=== PATIENT | male | born 1970 | race Caucasian/White ===

== ENCOUNTER 2017-07-19 19:33 | Inpatient (IN) | payer BC, OTHER ==
[~2017-07-19] VITALS: Ht 170.2 cm; Wt 101.0 kg
[~2017-07-19 19:33] MED LIST: BENZ10TG MC; Bupropion Xl150 MG PO; CEPH500 PO; CLIN300 PO; GABA300 PO; Glucophage1000 MG PO; HYDACE5 PO; INSLI100I SC; INSUASPI SC; INSULANPEN; Lantus100 UNIT/1 SC; Lovastatin20 MG PO; METF500C PO; METO25ER PO; Prinivil10 MG PO; RXCLIN PO; SULTRIDS PO
[2017-07-19 20:11] LABS: BASOPHILS ABSOLUTE AUTO 0.09 K/mm3 (0.00-0.23); BASOPHILS PERCENT AUTO 1 % (0-2); EOSINOPHILS PERCENT AUTO 0 % (0-6); Hematocrit 43.7 % (37.0-53.0); Hemoglobin 14.5 g/dL (13.5-17.5); IMMATURE GRAN ABSOLUTE AUTO 0.31 K/mm3 (0.00-0.10); IMMATURE GRAN PERCENT AUTO 2 % (0-1); LYMPHOCYTES ABSOLUTE AUTO 0.33 K/mm3 (0.84-5.20); LYMPHOCYTES PERCENT AUTO 2 % (21-46); MONOCYTES ABSOLUTE AUTO 2.08 K/mm3 (0.16-1.47); MONOCYTES PERCENT AUTO 11 % (4-13); Mean Corpuscular HGB 33.1 pg (26.0-34.0); Mean Corpuscular HGB Conc 33.2 g/dL (31.5-36.5); Mean Corpuscular Volume 100 fL (80-100); Mean Platelet Volume 10.1 fL (9.1-12.4); NEUTROPHILS ABSOLUTE AUTO 15.74 K/mm3 (1.96-9.15); NEUTROPHILS PERCENT AUTO 85 % (41-73); Platelet Count 259 K/mm3 (150-400); RDW Coefficient Variation 11.8 % (11.7-14.2); RDW Standard Deviation 43.1 fL (35.1-46.3); Red Blood Cell Count 4.38 M/mm3 (4.30-5.90); White Blood Cell Count 18.55 K/mm3 (4.00-11.30)
[2017-07-19 20:30] LABS: Calcium, Ionized (POC) 1.08 mmol/L (1.10-1.46); Chloride (POC) 104 mmol/L (98-108); Creatinine (POC) 0.8 mg/dL (0.8-1.3); Glucose (ISTAT POC) 453 mg/dL (70-99); Hemoglobin (POC) 14.6 g/dL (13.5-17.5); Potassium (POC) 4.7 mmol/L (3.5-5.5); Sodium (POC) 130 mmol/L (135-148); Total CO2 (POC) 8 mmol/L (21-32)
[2017-07-19 20:32] LABS: Source, Urine Clean Catch
[2017-07-19 20:35] LABS: PCO2 Arterial 11.5 mmHg (35-45); PO2 Arterial 125 mmHg (80-100); pH Blood Arterial 7.05 (7.35-7.45)
[2017-07-19 20:41] LABS: Ethanol (Alcohol), Blood, Med <3 mg/dL; Magnesium, Blood 2.3 mg/dL (1.6-2.4)
[2017-07-19 20:46] LABS: Appearance, Urine Clear (Clear); Bilirubin, Urine Neg (Neg); Blood, Urine 5+ (Neg); Color, Urine Yellow (P-Yellow); Glucose Qualitative, Urine 4+ (Neg); Ketones, Urine 4+ (Neg); Leukocyte Esterase, Urine Neg (Neg); Nitrite, Urine Neg (Neg); Protein, Urine 2+ (Neg); Urobilinogen, Urine NORM (Normal)
[2017-07-19] MEDS ORDERED: DOXY100 PO ×2 (20:51)
[2017-07-19 20:55] LABS: Bacteria Rare /hpf; Squamous Epithelial Cells Not Seen /hpf (Few); White Blood Cells, Urine 0-2 /hpf (0-5)
[2017-07-19 21:07] LABS: Troponin I <0.015 ng/mL (0.000-0.040)
[2017-07-19 21:32] LABS: Alanine Aminotransfer (ALT/SGP 25 U/L (12-78); Albumin, Blood 3.2 g/dL (3.4-5.0); Albumin/Globulin Ratio 0.6 (0.8-1.8); Alk Phos 139 U/L (50-136); Anion Gap 28 mmol/L (6-16); Aspartate Aminotrans (AST/SGOT 17 U/L (12-37); Bilirubin, Total 0.5 mg/dL (0.1-1.0); Blood Urea Nitrogen 33 mg/dL (8-24); CO2, Blood 7 mmol/L (21-32); Calcium, Blood 8.9 mg/dL (8.5-10.1); Chloride, Blood 94 mmol/L (98-108); Creatinine, Blood 0.85 mg/dL (0.60-1.20); Globulin, Blood 5.3 g/dL (2.2-4.0); Glomerular Filtration Rate >60 (60-); Glucose, Blood 447 mg/dL (70-99); Phosphorus, Blood 3.5 mg/dL (2.5-4.9); Potassium, Blood 4.6 mmol/L (3.5-5.5); Sodium, Blood 129 mmol/L (136-145); Total Protein, Blood 8.5 g/dL (6.4-8.2)
[2017-07-20 00:51] LABS: Albumin, Blood 2.7 g/dL (3.4-5.0); Anion Gap 23 mmol/L (6-16); Blood Urea Nitrogen 30 mg/dL (8-24); Bun/Creatinine Ratio 37.3 (12.0-20.0); CO2, Blood 8 mmol/L (21-32); Calcium, Blood 7.9 mg/dL (8.5-10.1); Chloride, Blood 105 mmol/L (98-108); Creatinine, Blood 0.81 mg/dL (0.60-1.20); Glomerular Filtration Rate >60 (60-); Glucose, Blood 290 mg/dL (70-99); Phosphorus, Blood 2.2 mg/dL (2.5-4.9); Potassium, Blood 4.5 mmol/L (3.5-5.5); Sodium, Blood 136 mmol/L (136-145)
[2017-07-20 04:34] LABS: BASOPHILS ABSOLUTE AUTO 0.03 K/mm3 (0.00-0.23); BASOPHILS PERCENT AUTO 0 % (0-2); EOSINOPHILS PERCENT AUTO 0 % (0-6); Hematocrit 35.6 % (37.0-53.0); Hemoglobin 12.2 g/dL (13.5-17.5); IMMATURE GRAN ABSOLUTE AUTO 0.27 K/mm3 (0.00-0.10); IMMATURE GRAN PERCENT AUTO 2 % (0-1); LYMPHOCYTES PERCENT AUTO 5 % (21-46); MONOCYTES ABSOLUTE AUTO 2.05 K/mm3 (0.16-1.47); MONOCYTES PERCENT AUTO 14 % (4-13); Mean Corpuscular HGB 32.7 pg (26.0-34.0); Mean Corpuscular HGB Conc 34.3 g/dL (31.5-36.5); Mean Platelet Volume 9.7 fL (9.1-12.4); NEUTROPHILS ABSOLUTE AUTO 11.66 K/mm3 (1.96-9.15); NEUTROPHILS PERCENT AUTO 79 % (41-73); Platelet Count 243 K/mm3 (150-400); RDW Coefficient Variation 11.8 % (11.7-14.2); RDW Standard Deviation 41.1 fL (35.1-46.3); Red Blood Cell Count 3.73 M/mm3 (4.30-5.90); White Blood Cell Count 14.71 K/mm3 (4.00-11.30)
[2017-07-20 04:52] LABS: Mean Corpuscular Volume 95 fL (80-100)
[2017-07-20 05:04] LABS: Albumin, Blood 2.4 g/dL (3.4-5.0); Anion Gap 19 mmol/L (6-16); Blood Urea Nitrogen 28 mg/dL (8-24); Bun/Creatinine Ratio 38.6 (12.0-20.0); CO2, Blood 11 mmol/L (21-32); Calcium, Blood 7.8 mg/dL (8.5-10.1); Chloride, Blood 107 mmol/L (98-108); Creatinine, Blood 0.73 mg/dL (0.60-1.20); Glomerular Filtration Rate >60 (60-); Glucose, Blood 239 mg/dL (70-99); Phosphorus, Blood 1.1 mg/dL (2.5-4.9); Potassium, Blood 4.2 mmol/L (3.5-5.5); Sodium, Blood 137 mmol/L (136-145)
[2017-07-20 08:26] LABS: Albumin, Blood 2.3 g/dL (3.4-5.0); Anion Gap 15 mmol/L (6-16); Blood Urea Nitrogen 23 mg/dL (8-24); Bun/Creatinine Ratio 37.6 (12.0-20.0); CO2, Blood 15 mmol/L (21-32); Calcium, Blood 7.7 mg/dL (8.5-10.1); Chloride, Blood 108 mmol/L (98-108); Creatinine, Blood 0.61 mg/dL (0.60-1.20); Glomerular Filtration Rate >60 (60-); Glucose, Blood 214 mg/dL (70-99); Phosphorus, Blood 1.3 mg/dL (2.5-4.9); Potassium, Blood 3.6 mmol/L (3.5-5.5); Sodium, Blood 138 mmol/L (136-145)
[2017-07-20 12:42] LABS: Albumin, Blood 2.2 g/dL (3.4-5.0); Anion Gap 11 mmol/L (6-16); Blood Urea Nitrogen 20 mg/dL (8-24); Bun/Creatinine Ratio 37.3 (12.0-20.0); CO2, Blood 20 mmol/L (21-32); Calcium, Blood 7.7 mg/dL (8.5-10.1); Chloride, Blood 106 mmol/L (98-108); Creatinine, Blood 0.54 mg/dL (0.60-1.20); Glomerular Filtration Rate >60 (60-); Glucose, Blood 222 mg/dL (70-99); Phosphorus, Blood 1.8 mg/dL (2.5-4.9); Potassium, Blood 3.4 mmol/L (3.5-5.5); Sodium, Blood 137 mmol/L (136-145)
[2017-07-20 16:20] LABS: Albumin, Blood 2.2 g/dL (3.4-5.0); Anion Gap 14 mmol/L (6-16); Blood Urea Nitrogen 19 mg/dL (8-24); Bun/Creatinine Ratio 34.2 (12.0-20.0); CO2, Blood 18 mmol/L (21-32); Chloride, Blood 107 mmol/L (98-108); Creatinine, Blood 0.56 mg/dL (0.60-1.20); Glomerular Filtration Rate >60 (60-); Glucose, Blood 279 mg/dL (70-99); Phosphorus, Blood 1.9 mg/dL (2.5-4.9); Potassium, Blood 3.4 mmol/L (3.5-5.5); Sodium, Blood 139 mmol/L (136-145)
[2017-07-21 05:01] LABS: BASOPHILS ABSOLUTE AUTO 0.04 K/mm3 (0.00-0.23); BASOPHILS PERCENT AUTO 0 % (0-2); EOSINOPHILS ABSOLUTE AUTO 0.08 K/mm3 (0.00-0.68); EOSINOPHILS PERCENT AUTO 1 % (0-6); Hemoglobin 11.8 g/dL (13.5-17.5); IMMATURE GRAN ABSOLUTE AUTO 0.11 K/mm3 (0.00-0.10); IMMATURE GRAN PERCENT AUTO 1 % (0-1); LYMPHOCYTES ABSOLUTE AUTO 1.21 K/mm3 (0.84-5.20); LYMPHOCYTES PERCENT AUTO 13 % (21-46); MONOCYTES ABSOLUTE AUTO 1.45 K/mm3 (0.16-1.47); MONOCYTES PERCENT AUTO 16 % (4-13); Mean Corpuscular HGB 32.7 pg (26.0-34.0); Mean Corpuscular HGB Conc 34.7 g/dL (31.5-36.5); Mean Corpuscular Volume 94 fL (80-100); Mean Platelet Volume 9.5 fL (9.1-12.4); NEUTROPHILS ABSOLUTE AUTO 6.14 K/mm3 (1.96-9.15); NEUTROPHILS PERCENT AUTO 68 % (41-73); Platelet Count 227 K/mm3 (150-400); RDW Coefficient Variation 11.9 % (11.7-14.2); RDW Standard Deviation 41.2 fL (35.1-46.3); Red Blood Cell Count 3.61 M/mm3 (4.30-5.90); White Blood Cell Count 9.03 K/mm3 (4.00-11.30)
[2017-07-21 05:29] LABS: Alanine Aminotransfer (ALT/SGP 14 U/L (12-78); Albumin, Blood 2.1 g/dL (3.4-5.0); Alk Phos 83 U/L (50-136); Anion Gap 10 mmol/L (6-16); Aspartate Aminotrans (AST/SGOT 11 U/L (12-37); Bilirubin, Total 0.3 mg/dL (0.1-1.0); Blood Urea Nitrogen 15 mg/dL (8-24); Bun/Creatinine Ratio 28.2 (12.0-20.0); CO2, Blood 24 mmol/L (21-32); Calcium, Blood 7.8 mg/dL (8.5-10.1); Chloride, Blood 106 mmol/L (98-108); Creatinine, Blood 0.53 mg/dL (0.60-1.20); Glomerular Filtration Rate >60 (60-); Glucose, Blood 214 mg/dL (70-99); Potassium, Blood 3.3 mmol/L (3.5-5.5); Sodium, Blood 140 mmol/L (136-145)
[2017-07-21 05:30] LABS: Albumin/Globulin Ratio 0.6 (0.8-1.8); Globulin, Blood 3.7 g/dL (2.2-4.0); Total Protein, Blood 5.8 g/dL (6.4-8.2)
[2017-07-21 11:09] LABS: Vancomycin, Trough 10.7 ug/mL (5.0-10.0)
[2017-07-22 05:44] LABS: Anion Gap 7 mmol/L (6-16); Blood Urea Nitrogen 13 mg/dL (8-24); Bun/Creatinine Ratio 23.9 (12.0-20.0); CO2, Blood 31 mmol/L (21-32); Calcium, Blood 8.3 mg/dL (8.5-10.1); Chloride, Blood 104 mmol/L (98-108); Creatinine, Blood 0.54 mg/dL (0.60-1.20); Glomerular Filtration Rate >60 (60-); Glucose, Blood 236 mg/dL (70-99); Potassium, Blood 3.1 mmol/L (3.5-5.5); Sodium, Blood 142 mmol/L (136-145)
[2017-07-22] MEDS ORDERED: Augmentin 875-1 EACH PO ×2 (11:56)
[2017-07-22] MEDS ORDERED: Acetaminophen325 M1 PO ×2 (11:56)
[2017-07-22] MEDS ORDERED: Novolog Fl100 UNIT/1 SC ×2 (11:57)
[2017-07-22] MEDS ORDERED: Oxycodone-Apap1 EAC3 PO ×2 (11:57)
[2017-07-22] MEDS ORDERED: INSULANPEN SC ×2 (11:58)
[2017-07-22] MEDS ORDERED: PROBIOTIC1 EACH PO ×2 (12:00)
== END 2017-07-22 14:34 | disposition home or self-care (01) | DRG 638 ==
LOC: ER 19:33 → MEDS 21:08 → ICUW 21:08 → ICUE 21:29 → MEDS 07-20 18:19 → ENPENDDIS 07-22 10:21 → MEDS 07-22 14:34
PROVIDERS: Emergency Medicine; Family Medicine; Internal Medicine
PROC: 0Y903ZZ Drainage of Right Buttock, Percutaneous Approach (ICD-10-PCS; principal; 2017-07-20)
DX: E11.10 Type 2 diabetes mellitus with ketoacidosis without coma (principal); L02.31 Cutaneous abscess of buttock; E87.1 Hypo-osmolality and hyponatremia; B95.4 Other streptococcus as the cause of diseases classified elsewhere; B95.1 Streptococcus, group B, as the cause of diseases classified elsewhere; E78.5 Hyperlipidemia, unspecified; I10 Essential (primary) hypertension; F10.10 Alcohol abuse, uncomplicated; Z87.891 Personal history of nicotine dependence; Z88.6 Allergy status to analgesic agent; Z89.429 Acquired absence of other toe(s), unspecified side
CPT/HCPCS: 10140; 36415; 36600; 71045; 80047; 80048; 80053; 80069; 80202; 81001; 82010; 82803; 82947; 83036; 83605; 83735; 84100; 84484; 85014; 85025; 87040; 87070; 87075; 87076; 87147; 87185; 87205; 87493; 93005; 93010; 96361; 96374; 99285; G0480; J0360; J0696; J1815; J2270; J2405; J2543; J3370; J7030; J7042; J7050; J7060

== ENCOUNTER 2017-07-29 16:32 | Emergency (ER) | payer BC, OTHER ==
[~2017-07-29] VITALS: Ht 170.2 cm; Wt 95.2 kg
[~2017-07-29 16:32] MED LIST changes: +Acetaminophen325 M1 PO; +Augmentin 875-1 EACH PO; +DOXY100 PO; +INSULANPEN SC; +Novolog Fl100 UNIT/1 SC; +Oxycodone-Apap1 EAC3 PO; +PROBIOTIC1 EACH PO
[2017-07-29 17:44] LABS: BASOPHILS ABSOLUTE AUTO 0.07 K/mm3 (0.00-0.23); BASOPHILS PERCENT AUTO 1 % (0-2); EOSINOPHILS ABSOLUTE AUTO 0.11 K/mm3 (0.00-0.68); EOSINOPHILS PERCENT AUTO 1 % (0-6); Hematocrit 44.7 % (37.0-53.0); Hemoglobin 14.9 g/dL (13.5-17.5); IMMATURE GRAN ABSOLUTE AUTO 0.07 K/mm3 (0.00-0.10); IMMATURE GRAN PERCENT AUTO 1 % (0-1); LYMPHOCYTES ABSOLUTE AUTO 1.71 K/mm3 (0.84-5.20); LYMPHOCYTES PERCENT AUTO 18 % (21-46); MONOCYTES ABSOLUTE AUTO 1.15 K/mm3 (0.16-1.47); MONOCYTES PERCENT AUTO 12 % (4-13); Mean Corpuscular HGB 32.1 pg (26.0-34.0); Mean Corpuscular HGB Conc 33.3 g/dL (31.5-36.5); Mean Corpuscular Volume 96 fL (80-100); NEUTROPHILS ABSOLUTE AUTO 6.22 K/mm3 (1.96-9.15); NEUTROPHILS PERCENT AUTO 67 % (41-73); Platelet Count 378 K/mm3 (150-400); RDW Coefficient Variation 11.6 % (11.7-14.2); Red Blood Cell Count 4.64 M/mm3 (4.30-5.90); White Blood Cell Count 9.33 K/mm3 (4.00-11.30)
[2017-07-29] MEDS ORDERED: BUPR150ER PO (17:45)
[2017-07-29] MEDS ORDERED: Lantus100 UNIT/1 SQ (17:45)
[2017-07-29] MEDS ORDERED: Metformin HCl1000 MG PO (17:45)
[2017-07-29] MEDS ORDERED: GABA100 PO (17:45)
[2017-07-29 18:01] LABS: Alanine Aminotransfer (ALT/SGP 36 U/L (12-78); Albumin/Globulin Ratio 0.6 (0.8-1.8); Alk Phos 99 U/L (50-136); Anion Gap 7 mmol/L (6-16); Aspartate Aminotrans (AST/SGOT 32 U/L (12-37); Bilirubin, Total 0.2 mg/dL (0.1-1.0); Blood Urea Nitrogen 13 mg/dL (8-24); Bun/Creatinine Ratio 18.7 (12.0-20.0); CO2, Blood 29 mmol/L (21-32); Calcium, Blood 9.1 mg/dL (8.5-10.1); Chloride, Blood 103 mmol/L (98-108); Creatinine, Blood 0.69 mg/dL (0.60-1.20); Glomerular Filtration Rate >60 (60-); Glucose, Blood 181 mg/dL (70-99); Potassium, Blood 4.2 mmol/L (3.5-5.5); Sodium, Blood 139 mmol/L (136-145)
[2017-07-29] MEDS ORDERED: Augmentin 875-1 EACH PO (18:38)
== END 2017-07-29 19:09 | disposition home or self-care (01) ==
LOC: ER 16:32
PROVIDERS: Physician Assistant
DX: Z48.817 Encounter for surgical aftercare following surgery on the skin and subcutaneous tissue (principal); L02.31 Cutaneous abscess of buttock; Z91.040 Latex allergy status; Z88.8 Allergy status to other drugs, medicaments and biological substances; Z79.899 Other long term (current) drug therapy; Z79.84 Long term (current) use of oral hypoglycemic drugs; Z79.4 Long term (current) use of insulin; E11.9 Type 2 diabetes mellitus without complications
CPT/HCPCS: 36415; 80053; 82947; 83605; 85025; 87040; 87070; 87075; 87077; 87147; 87186; 87205; 99283

== ENCOUNTER 2017-08-08 00:22 | Day surgery (SDC) | payer BC, OTHER ==
[~2017-08-08 00:22] MED LIST changes: +BUPR150ER PO; +GABA100 PO; +Lantus100 UNIT/1 SQ; +Metformin HCl1000 MG PO
== END 2017-08-08 23:18 | disposition home or self-care (01) ==
LOC: WOUND 00:22
PROC: 0JB90ZZ Excision of Buttock Subcutaneous Tissue and Fascia, Open Approach (ICD-10-PCS; principal; 2017-08-08)
DX: Z48.00 Encounter for change or removal of nonsurgical wound dressing (principal); K61.2 Anorectal abscess; E11.8 Type 2 diabetes mellitus with unspecified complications; E66.9 Obesity, unspecified; Z68.33 Body mass index [BMI] 33.0-33.9, adult; Z79.4 Long term (current) use of insulin; Z87.891 Personal history of nicotine dependence; Z91.040 Latex allergy status
CPT/HCPCS: G0463

== ENCOUNTER 2017-08-16 00:12 | Day surgery (SDC) | payer BC, OTHER | END 2017-08-16 23:09 | disposition home or self-care (01) | LOC: WOUND 00:12 | DX: Z48.00 Encounter for change or removal of nonsurgical wound dressing (principal); K61.2 Anorectal abscess; E11.8 Type 2 diabetes mellitus with unspecified complications; E11.10 Type 2 diabetes mellitus with ketoacidosis without coma; Z87.891 Personal history of nicotine dependence; Z79.4 Long term (current) use of insulin | CPT/HCPCS: G0463 ==

== ENCOUNTER 2017-08-21 00:13 | Day surgery (SDC) | payer BC, OTHER | END 2017-08-21 22:57 | disposition home or self-care (01) | LOC: WOUND 00:13 | DX: Z48.00 Encounter for change or removal of nonsurgical wound dressing (principal); K61.1 Rectal abscess; L02.31 Cutaneous abscess of buttock; E11.9 Type 2 diabetes mellitus without complications; Z87.891 Personal history of nicotine dependence; Z79.4 Long term (current) use of insulin | CPT/HCPCS: G0463 ==

== ENCOUNTER 2020-11-28 16:16 | Emergency (ER) | payer OTHER ==
[~2020-11-28] VITALS: Ht 170.2 cm; Wt 96.2 kg
[2020-11-28] MEDS ORDERED: Metformin HCl750 MG PO (16:29)
[2020-11-28] MEDS ORDERED: ATORVASTATIN CA20 MG PO (16:30)
[2020-11-28] MEDS ORDERED: CEPH500 PO (16:33)
== END 2020-11-28 16:33 | disposition home or self-care (01) ==
LOC: ER 16:16
DX: L03.116 Cellulitis of left lower limb (principal); L03.115 Cellulitis of right lower limb; E11.9 Type 2 diabetes mellitus without complications; E78.5 Hyperlipidemia, unspecified; Z88.6 Allergy status to analgesic agent; Z91.040 Latex allergy status; Z79.4 Long term (current) use of insulin; Z79.899 Other long term (current) drug therapy
CPT/HCPCS: 99282

== ENCOUNTER 2020-12-16 13:12 | Emergency (ER) | payer OTHER ==
[~2020-12-16] VITALS: Ht 170.2 cm; Wt 94.8 kg
[~2020-12-16 13:12] MED LIST changes: +ATORVASTATIN CA20 MG PO; +Metformin HCl750 MG PO
[2020-12-16 13:43] LABS: BASOPHILS ABSOLUTE AUTO 0.08 K/mm3 (0.00-0.23); BASOPHILS PERCENT AUTO 1 % (0-2); EOSINOPHILS ABSOLUTE AUTO 0.18 K/mm3 (0.00-0.68); EOSINOPHILS PERCENT AUTO 2 % (0-6); Hematocrit 43.5 % (37.0-53.0); IMMATURE GRAN ABSOLUTE AUTO 0.04 K/mm3 (0.00-0.10); IMMATURE GRAN PERCENT AUTO 0 % (0-1); LYMPHOCYTES ABSOLUTE AUTO 1.05 K/mm3 (0.84-5.20); LYMPHOCYTES PERCENT AUTO 9 % (21-46); MONOCYTES ABSOLUTE AUTO 1.42 K/mm3 (0.16-1.47); MONOCYTES PERCENT AUTO 12 % (4-13); Mean Corpuscular HGB 32.6 pg (26.0-34.0); Mean Corpuscular HGB Conc 34.5 g/dL (31.5-36.5); Mean Corpuscular Volume 95 fL (80-100); Mean Platelet Volume 10.5 fL (9.1-12.4); NEUTROPHILS ABSOLUTE AUTO 9.43 K/mm3 (1.96-9.15); NEUTROPHILS PERCENT AUTO 77 % (41-73); Platelet Count 236 K/mm3 (150-400); RDW Standard Deviation 41.8 fL (35.1-46.3)
[2020-12-16 14:18] LABS: Alanine Aminotransfer (ALT/SGP 23 U/L (12-78); Albumin, Blood 3.4 g/dL (3.4-5.0); Albumin/Globulin Ratio 0.9 (0.8-1.8); Alk Phos 158 U/L (50-136); Anion Gap 7 mmol/L (6-16); Aspartate Aminotrans (AST/SGOT 13 U/L (12-37); Bilirubin, Total 0.8 mg/dL (0.1-1.0); Blood Urea Nitrogen 13 mg/dL (8-24); Bun/Creatinine Ratio 21.3 (12.0-20.0); CO2, Blood 27 mmol/L (21-32); Calcium, Blood 9.1 mg/dL (8.5-10.1); Chloride, Blood 99 mmol/L (98-108); Creatinine, Blood 0.61 mg/dL (0.60-1.20); Globulin, Blood 3.6 g/dL (2.2-4.0); Glomerular Filtration Rate >60 (60-); Glucose, Blood 537 mg/dL (70-99); Potassium, Blood 4.7 mmol/L (3.5-5.5); Sodium, Blood 133 mmol/L (136-145)
[2020-12-16] MEDS ORDERED: Cleocin HCl300 MG PO (15:14)
== END 2020-12-16 15:25 | disposition home or self-care (01) ==
LOC: ER 13:12
PROVIDERS: Physician Assistant
DX: L03.116 Cellulitis of left lower limb (principal); L03.115 Cellulitis of right lower limb; E11.9 Type 2 diabetes mellitus without complications; Z88.6 Allergy status to analgesic agent; Z91.040 Latex allergy status; Z87.891 Personal history of nicotine dependence
CPT/HCPCS: 36415; 80053; 83690; 85025; 96365; 99283-25

== ENCOUNTER 2020-12-23 10:32 | Day surgery (SDC) | payer OTHER ==
[~2020-12-23 10:32] MED LIST changes: +Cleocin HCl300 MG PO
== END 2020-12-23 23:00 | disposition home or self-care (01) ==
LOC: WOUND 10:32
DX: E11.622 Type 2 diabetes mellitus with other skin ulcer (principal); L97.829 Non-pressure chronic ulcer of other part of left lower leg with unspecified severity; L97.819 Non-pressure chronic ulcer of other part of right lower leg with unspecified severity; E11.59 Type 2 diabetes mellitus with other circulatory complications; Z91.040 Latex allergy status
CPT/HCPCS: G0463

== ENCOUNTER 2020-12-30 01:28 | Day surgery (SDC) | payer OTHER | END 2020-12-30 22:49 | disposition home or self-care (01) | LOC: WOUND 01:28 | DX: E11.622 Type 2 diabetes mellitus with other skin ulcer (principal); L97.829 Non-pressure chronic ulcer of other part of left lower leg with unspecified severity; L97.819 Non-pressure chronic ulcer of other part of right lower leg with unspecified severity; E11.59 Type 2 diabetes mellitus with other circulatory complications; E11.10 Type 2 diabetes mellitus with ketoacidosis without coma; E11.65 Type 2 diabetes mellitus with hyperglycemia; Z79.4 Long term (current) use of insulin; Z87.891 Personal history of nicotine dependence | CPT/HCPCS: A9270; G0463 ==

== ENCOUNTER 2021-04-13 06:13 | Day surgery (SDC) | payer OTHER ==
[~2021-04-13] VITALS: Ht 170.2 cm; Wt 89.2 kg
[2021-04-13] MEDS ORDERED: GLIP5ER PO (06:46)
--- NOTE | 2021-04-13 07:32 | NUR ---
04/13/21 0732 Sarah Mccray TETRATIMOTEOINE DROP TO RIGHT EYE AT 0636. PLEDGET TO RIGHT EYE AT 0637.
[2021-04-19] MEDS ORDERED: SILVADENE20 G1 TOP (09:48)
== END 2021-04-13 08:26 | disposition home or self-care (01) ==
LOC: ORSCSDS 06:13
PROVIDERS: Ophthalmology
PROC: 08RJ3JZ Replacement of Right Lens with Synthetic Substitute, Percutaneous Approach (ICD-10-PCS; principal; 2021-04-13 07:30)
DX: H25.11 Age-related nuclear cataract, right eye (principal); I10 Essential (primary) hypertension; E11.9 Type 2 diabetes mellitus without complications; Z79.4 Long term (current) use of insulin; Z79.899 Other long term (current) drug therapy
CPT/HCPCS: 82947; J2001; J2250; J3010; J3301; J7040; V2632

== ENCOUNTER 2021-04-27 06:09 | Day surgery (SDC) | payer OTHER ==
[~2021-04-27] VITALS: Ht 170.2 cm; Wt 89.7 kg
[~2021-04-27 06:09] MED LIST changes: +GLIP5ER PO; +SILVADENE20 G1 TOP
--- NOTE | 2021-04-27 06:24 | NUR ---
04/27/21 0624 Radha Nava EYE DROPS AND PLEDGETT IN AT 0619. CALL LIGHT WITHIN REACH.
== END 2021-04-27 08:24 | disposition home or self-care (01) ==
LOC: ORSCSDS 06:09
PROVIDERS: Ophthalmology
PROC: 08RK3JZ Replacement of Left Lens with Synthetic Substitute, Percutaneous Approach (ICD-10-PCS; principal; 2021-04-27 07:30)
DX: H25.12 Age-related nuclear cataract, left eye (principal); I10 Essential (primary) hypertension; E11.9 Type 2 diabetes mellitus without complications; Z87.891 Personal history of nicotine dependence; Z79.899 Other long term (current) drug therapy
CPT/HCPCS: 82947; J2001; J2250; J3010; J3301; J7040; V2632

== ENCOUNTER 2022-01-22 09:39 | Day surgery (SDC) | payer OTHER ==
[~2022-01-22] VITALS: Ht 172.7 cm; Wt 96.5 kg
--- NOTE | 2022-01-22 10:28 | NUR ---
Ambulatory in Day Surgery WITH CANE History, Chart, Medications and Allergies reviewed before start of procedure. Patient confirms NPO status and agrees with scheduled surgery. Lungs clear T/O to Auscultation. Patient States Post-Procedure ride home has been arranged.
--- NOTE | 2022-01-22 10:59 | NUR ---
01/22/22 1059 Norma Moreira HISTORY, CHART, MEDICATIONS AND ALLERGIES REVIEWED BEFORE START OF PROCEDURE. PATIENT CONFIRMS NPO STATUS AND AGREES WITH SCHEDULED PROCEDURE. 3-LEAD EKG REVIEWED WITH PHYSICIAN PRIOR TO START OF PROCEDURE. MONITOR INTACT WITH CONTINUOUS PULSE OXIMETRY,CAPNOGRAPHY, 3-LEAD EKG, INTERMITTENT BP. SUPPLEMENTAL O2 TO BE TITRATED THROUGHOUT PROCEDURE TO MAINTAIN O2 SATURATION ABOVE 90%. PATIENT DETERMINED TO BE ASA APPROPRIATE FOR PROPOFOL SEDATION PRIOR TO START OF PROCEDURE BY DR. SANTIZO. MALLAMPATI CLASS 2 AIRWAY: COMPLETE VISUALIZATION OF THE UVULA. STOP BANG ASSESSMENT SCORE 5.
--- NOTE | 2022-01-22 11:40 | NUR ---
REPORT GIVEN TO Chiqui WHO IS ASSUMING CARE OF PT AT THIS TIME.
--- NOTE | 2022-01-22 11:55 | NUR ---
Discharge instructions reviewed with patient. Patient verbalizes understanding. Copy given to patient to take home. Discharged via wheelchair to private car for ride home.
== END 2022-01-22 11:57 | disposition home or self-care (01) ==
LOC: ORD 09:39 → ORSCMMR 09:39 → ORD 10:15
PROVIDERS: Internal Medicine Gastroenterology
PROC: 0DBK8ZX Excision of Ascending Colon, Via Natural or Artificial Opening Endoscopic, Diagnostic (ICD-10-PCS; principal; 2022-01-22 10:15)
PROC: 0DBC8ZX Excision of Ileocecal Valve, Via Natural or Artificial Opening Endoscopic, Diagnostic (ICD-10-PCS; principal; 2022-01-22 10:15)
PROC: 0DBN8ZX Excision of Sigmoid Colon, Via Natural or Artificial Opening Endoscopic, Diagnostic (ICD-10-PCS; principal; 2022-01-22 10:15)
DX: R19.7 Diarrhea, unspecified (principal); E11.9 Type 2 diabetes mellitus without complications; F32.A Depression, unspecified; E78.00 Pure hypercholesterolemia, unspecified; Z79.4 Long term (current) use of insulin; Z79.899 Other long term (current) drug therapy
CPT/HCPCS: 82947; 88305; J2405; J2704; J7120

== ENCOUNTER → 2022-06-12 | Outpatient (CLI) | payer OTHER ==
[2022-06-12 19:38] LABS: BASOPHILS ABSOLUTE AUTO 0.06 K/mm3 (0.00-0.23); BASOPHILS PERCENT AUTO 1 % (0-2); EOSINOPHILS ABSOLUTE AUTO 0.12 K/mm3 (0.00-0.68); EOSINOPHILS PERCENT AUTO 2 % (0-6); Hematocrit 41.1 % (37.0-53.0); IMMATURE GRAN ABSOLUTE AUTO 0.02 K/mm3 (0.00-0.10); IMMATURE GRAN PERCENT AUTO 0 % (0-1); LYMPHOCYTES ABSOLUTE AUTO 1.57 K/mm3 (0.84-5.20); LYMPHOCYTES PERCENT AUTO 23 % (21-46); MONOCYTES ABSOLUTE AUTO 0.59 K/mm3 (0.16-1.47); MONOCYTES PERCENT AUTO 8 % (4-13); Mean Corpuscular HGB 30.5 pg (26.0-34.0); Mean Corpuscular HGB Conc 34.1 g/dL (31.5-36.5); Mean Corpuscular Volume 90 fL (80-100); Mean Platelet Volume 10.9 fL (9.1-12.4); NEUTROPHILS ABSOLUTE AUTO 4.63 K/mm3 (1.96-9.15); NEUTROPHILS PERCENT AUTO 66 % (41-73); Platelet Count 331 K/mm3 (150-400); RDW Standard Deviation 39.2 fL (35.1-46.3); Red Blood Cell Count 4.59 M/mm3 (4.30-5.90); White Blood Cell Count 6.99 K/mm3 (4.00-11.30)
[2022-06-12 20:05] LABS: Albumin, Blood 3.4 g/dL (3.4-5.0); Bilirubin, Total 0.3 mg/dL (0.1-1.0); Bun/Creatinine Ratio 37.9 (12.0-20.0); Creatinine, Blood 0.74 mg/dL (0.60-1.20); Globulin, Blood 3.5 g/dL (2.2-4.0); Potassium, Blood 4.8 mmol/L (3.5-5.5); Thyroid Stimulating Hormone 1.05 uIU/mL (0.360-4.800); Total Protein, Blood 6.9 g/dL (6.4-8.2)
== END | disposition home or self-care (01) ==
LOC: LAB SHORT 15:38 → LAB 15:38
PROVIDERS: Family Medicine
DX: R42 Dizziness and giddiness (principal)
CPT/HCPCS: 80053; 84443; 85025

== ENCOUNTER 2022-07-27 00:21 | Day surgery (SDC) | payer OTHER | END 2022-07-28 22:49 | disposition home or self-care (01) | LOC: WOUND 00:21 | DX: E11.622 Type 2 diabetes mellitus with other skin ulcer (principal); L97.812 Non-pressure chronic ulcer of other part of right lower leg with fat layer exposed; L97.822 Non-pressure chronic ulcer of other part of left lower leg with fat layer exposed; L97.829 Non-pressure chronic ulcer of other part of left lower leg with unspecified severity; E11.59 Type 2 diabetes mellitus with other circulatory complications; E11.621 Type 2 diabetes mellitus with foot ulcer; L97.429 Non-pressure chronic ulcer of left heel and midfoot with unspecified severity; L03.115 Cellulitis of right lower limb; E11.42 Type 2 diabetes mellitus with diabetic polyneuropathy; E11.29 Type 2 diabetes mellitus with other diabetic kidney complication | CPT/HCPCS: A9270 ==

== ENCOUNTER 2022-08-02 03:37 | Day surgery (SDC) | payer OTHER | END 2022-08-02 22:42 | disposition home or self-care (01) | LOC: WOUND 03:37 | DX: E11.622 Type 2 diabetes mellitus with other skin ulcer (principal); L97.812 Non-pressure chronic ulcer of other part of right lower leg with fat layer exposed; E11.621 Type 2 diabetes mellitus with foot ulcer; L97.429 Non-pressure chronic ulcer of left heel and midfoot with unspecified severity; E11.59 Type 2 diabetes mellitus with other circulatory complications | CPT/HCPCS: G0463 ==

== ENCOUNTER 2022-08-20 08:00 | Day surgery (SDC) | payer OTHER | END 2022-08-20 23:59 | disposition home or self-care (01) | LOC: WOUND 08:00 | DX: E11.622 Type 2 diabetes mellitus with other skin ulcer (principal); L97.812 Non-pressure chronic ulcer of other part of right lower leg with fat layer exposed; L97.822 Non-pressure chronic ulcer of other part of left lower leg with fat layer exposed; L98.498 Non-pressure chronic ulcer of skin of other sites with other specified severity; E11.59 Type 2 diabetes mellitus with other circulatory complications; Z87.891 Personal history of nicotine dependence | CPT/HCPCS: G0463 ==

== ENCOUNTER 2022-09-03 00:19 | Day surgery (SDC) | payer OTHER | END 2022-09-03 23:15 | disposition home or self-care (01) | LOC: WOUND 00:19 | DX: E11.622 Type 2 diabetes mellitus with other skin ulcer (principal); L97.812 Non-pressure chronic ulcer of other part of right lower leg with fat layer exposed; L97.822 Non-pressure chronic ulcer of other part of left lower leg with fat layer exposed; S80.211A Abrasion, right knee, initial encounter | CPT/HCPCS: A9270; G0463 ==

== ENCOUNTER 2022-09-24 01:28 | Day surgery (SDC) | payer OTHER | END 2022-09-24 23:00 | disposition home or self-care (01) | LOC: WOUND 01:28 | DX: E11.622 Type 2 diabetes mellitus with other skin ulcer (principal); L97.812 Non-pressure chronic ulcer of other part of right lower leg with fat layer exposed; E11.59 Type 2 diabetes mellitus with other circulatory complications; S80.211A Abrasion, right knee, initial encounter | CPT/HCPCS: A9270; G0463 ==

== ENCOUNTER 2022-10-15 08:00 | Day surgery (SDC) | payer OTHER | END 2022-10-15 23:59 | disposition home or self-care (01) | LOC: WOUND 08:00 | DX: E11.622 Type 2 diabetes mellitus with other skin ulcer (principal); L98.499 Non-pressure chronic ulcer of skin of other sites with unspecified severity; E11.59 Type 2 diabetes mellitus with other circulatory complications | CPT/HCPCS: G0463 ==

== ENCOUNTER 2022-11-07 00:42 | Day surgery (SDC) | payer OTHER | END 2022-11-07 23:03 | disposition home or self-care (01) | LOC: WOUND 00:42 | DX: E11.622 Type 2 diabetes mellitus with other skin ulcer (principal); L97.812 Non-pressure chronic ulcer of other part of right lower leg with fat layer exposed; L98.492 Non-pressure chronic ulcer of skin of other sites with fat layer exposed; L97.922 Non-pressure chronic ulcer of unspecified part of left lower leg with fat layer exposed; E11.59 Type 2 diabetes mellitus with other circulatory complications; S80.811A Abrasion, right lower leg, initial encounter; X58.XXXA Exposure to other specified factors, initial encounter | CPT/HCPCS: G0463 ==

== ENCOUNTER 2022-11-13 02:34 | Day surgery (SDC) | payer OTHER | END 2022-11-13 23:08 | disposition home or self-care (01) | LOC: WOUND 02:34 | DX: E11.622 Type 2 diabetes mellitus with other skin ulcer (principal); L97.812 Non-pressure chronic ulcer of other part of right lower leg with fat layer exposed; L97.822 Non-pressure chronic ulcer of other part of left lower leg with fat layer exposed; E11.59 Type 2 diabetes mellitus with other circulatory complications | CPT/HCPCS: G0463 ==

== ENCOUNTER 2022-11-19 03:46 | Day surgery (SDC) | payer OTHER | END 2022-11-19 23:19 | disposition home or self-care (01) | LOC: WOUND 03:46 | DX: E11.622 Type 2 diabetes mellitus with other skin ulcer (principal); E11.59 Type 2 diabetes mellitus with other circulatory complications | CPT/HCPCS: G0463 ==

== ENCOUNTER 2022-11-26 09:56 | Day surgery (SDC) | payer OTHER | END 2022-11-26 23:00 | disposition home or self-care (01) | LOC: WOUND 09:56 | DX: E11.622 Type 2 diabetes mellitus with other skin ulcer (principal); L98.492 Non-pressure chronic ulcer of skin of other sites with fat layer exposed; L97.929 Non-pressure chronic ulcer of unspecified part of left lower leg with unspecified severity; S80.811D Abrasion, right lower leg, subsequent encounter; E11.59 Type 2 diabetes mellitus with other circulatory complications; X58.XXXD Exposure to other specified factors, subsequent encounter | CPT/HCPCS: G0463 ==

== ENCOUNTER 2022-12-20 01:43 | Day surgery (SDC) | payer MEDICARE, OTHER | END 2022-12-20 23:00 | disposition home or self-care (01) | LOC: WOUND 01:43 | DX: E11.622 Type 2 diabetes mellitus with other skin ulcer (principal); L98.492 Non-pressure chronic ulcer of skin of other sites with fat layer exposed; S81.801D Unspecified open wound, right lower leg, subsequent encounter; E11.59 Type 2 diabetes mellitus with other circulatory complications; X58.XXXD Exposure to other specified factors, subsequent encounter | CPT/HCPCS: A9270; G0463 ==

== ENCOUNTER 2022-12-31 00:28 | Day surgery (SDC) | payer MEDICARE, OTHER | END 2022-12-31 23:03 | disposition home or self-care (01) | LOC: WOUND 00:28 | DX: E11.622 Type 2 diabetes mellitus with other skin ulcer (principal); L97.812 Non-pressure chronic ulcer of other part of right lower leg with fat layer exposed; S80.211A Abrasion, right knee, initial encounter | CPT/HCPCS: G0463 ==

== ENCOUNTER 2023-01-14 02:17 | Day surgery (SDC) | payer MEDICARE, OTHER | END 2023-01-14 23:02 | disposition home or self-care (01) | LOC: WOUND 02:17 | DX: E11.622 Type 2 diabetes mellitus with other skin ulcer (principal); S80.211A Abrasion, right knee, initial encounter; L97.812 Non-pressure chronic ulcer of other part of right lower leg with fat layer exposed | CPT/HCPCS: G0463 ==

== ENCOUNTER 2023-01-28 02:14 | Day surgery (SDC) | payer MEDICARE, OTHER | END 2023-01-28 23:01 | disposition home or self-care (01) | LOC: WOUND 02:14 | DX: E11.622 Type 2 diabetes mellitus with other skin ulcer (principal); L97.812 Non-pressure chronic ulcer of other part of right lower leg with fat layer exposed; L97.822 Non-pressure chronic ulcer of other part of left lower leg with fat layer exposed; E11.59 Type 2 diabetes mellitus with other circulatory complications | CPT/HCPCS: G0463 ==

== ENCOUNTER 2023-02-25 01:08 | Day surgery (SDC) | payer MEDICARE, OTHER | END 2023-02-25 22:51 | disposition home or self-care (01) | LOC: WOUND 01:08 | DX: E11.622 Type 2 diabetes mellitus with other skin ulcer (principal); L97.812 Non-pressure chronic ulcer of other part of right lower leg with fat layer exposed; L97.822 Non-pressure chronic ulcer of other part of left lower leg with fat layer exposed; E11.59 Type 2 diabetes mellitus with other circulatory complications; S80.221A Blister (nonthermal), right knee, initial encounter; X58.XXXA Exposure to other specified factors, initial encounter | CPT/HCPCS: G0463 ==

== ENCOUNTER 2023-04-08 03:05 | Day surgery (SDC) | payer MEDICARE, OTHER | END 2023-04-11 22:37 | disposition home or self-care (01) | LOC: WOUND 03:05 | DX: E11.622 Type 2 diabetes mellitus with other skin ulcer (principal); L97.819 Non-pressure chronic ulcer of other part of right lower leg with unspecified severity; S80.811D Abrasion, right lower leg, subsequent encounter; E11.59 Type 2 diabetes mellitus with other circulatory complications; E11.621 Type 2 diabetes mellitus with foot ulcer; L97.412 Non-pressure chronic ulcer of right heel and midfoot with fat layer exposed; L97.812 Non-pressure chronic ulcer of other part of right lower leg with fat layer exposed; X58.XXXD Exposure to other specified factors, subsequent encounter | CPT/HCPCS: G0463 ==

== ENCOUNTER 2023-04-22 03:04 | Day surgery (SDC) | payer MEDICARE, OTHER | END 2023-04-22 22:44 | disposition home or self-care (01) | LOC: WOUND 03:04 | DX: E11.622 Type 2 diabetes mellitus with other skin ulcer (principal); E11.59 Type 2 diabetes mellitus with other circulatory complications | CPT/HCPCS: G0463 ==

== ENCOUNTER 2023-05-06 02:53 | Day surgery (SDC) | payer MEDICARE, OTHER | END 2023-05-06 23:05 | disposition home or self-care (01) | LOC: WOUND 02:53 | DX: E11.621 Type 2 diabetes mellitus with foot ulcer (principal); L97.412 Non-pressure chronic ulcer of right heel and midfoot with fat layer exposed; E11.622 Type 2 diabetes mellitus with other skin ulcer; L97.812 Non-pressure chronic ulcer of other part of right lower leg with fat layer exposed; L97.422 Non-pressure chronic ulcer of left heel and midfoot with fat layer exposed; E11.59 Type 2 diabetes mellitus with other circulatory complications ==

== ENCOUNTER 2023-05-15 01:47 | Day surgery (SDC) | payer MEDICARE, OTHER | END 2023-05-15 22:41 | disposition home or self-care (01) | LOC: WOUND 01:47 | DX: E11.622 Type 2 diabetes mellitus with other skin ulcer (principal); E11.621 Type 2 diabetes mellitus with foot ulcer; L97.512 Non-pressure chronic ulcer of other part of right foot with fat layer exposed; L97.812 Non-pressure chronic ulcer of other part of right lower leg with fat layer exposed; L97.522 Non-pressure chronic ulcer of other part of left foot with fat layer exposed; L97.822 Non-pressure chronic ulcer of other part of left lower leg with fat layer exposed ==

== ENCOUNTER 2023-05-22 02:23 | Day surgery (SDC) | payer MEDICARE, OTHER | END 2023-05-22 22:49 | disposition home or self-care (01) | LOC: WOUND 02:23 | DX: E11.621 Type 2 diabetes mellitus with foot ulcer (principal); L97.412 Non-pressure chronic ulcer of right heel and midfoot with fat layer exposed; E11.622 Type 2 diabetes mellitus with other skin ulcer; L97.812 Non-pressure chronic ulcer of other part of right lower leg with fat layer exposed; E11.10 Type 2 diabetes mellitus with ketoacidosis without coma; E11.59 Type 2 diabetes mellitus with other circulatory complications; S89.92XD Unspecified injury of left lower leg, subsequent encounter; X58.XXXD Exposure to other specified factors, subsequent encounter; L97.522 Non-pressure chronic ulcer of other part of left foot with fat layer exposed; S50.312D Abrasion of left elbow, subsequent encounter | CPT/HCPCS: 73630; 87071; 87075; 87076; 87077; 87185; 87186; 87205; A9270; G0463 ==

== ENCOUNTER 2023-05-29 03:24 | Day surgery (SDC) | payer MEDICARE, OTHER ==
[~2023-05-29 03:24] MED LIST changes: +METFORMIN HCL500 MG PO; -Metformin HCl750 MG PO
== END 2023-05-29 23:05 | disposition home or self-care (01) ==
LOC: WOUND 03:24
DX: E11.621 Type 2 diabetes mellitus with foot ulcer (principal); E11.59 Type 2 diabetes mellitus with other circulatory complications; L97.419 Non-pressure chronic ulcer of right heel and midfoot with unspecified severity; E11.10 Type 2 diabetes mellitus with ketoacidosis without coma; E11.40 Type 2 diabetes mellitus with diabetic neuropathy, unspecified; E11.622 Type 2 diabetes mellitus with other skin ulcer; L97.812 Non-pressure chronic ulcer of other part of right lower leg with fat layer exposed; L97.523 Non-pressure chronic ulcer of other part of left foot with necrosis of muscle; S50.312D Abrasion of left elbow, subsequent encounter; S80.812D Abrasion, left lower leg, subsequent encounter; X58.XXXD Exposure to other specified factors, subsequent encounter
CPT/HCPCS: G0463

== ENCOUNTER 2023-06-03 17:38 | Inpatient (IN) | payer MEDICARE, OTHER ==
[~2023-06-03] VITALS: Ht 170.2 cm; Wt 81.2 kg
[2023-06-03 19:55] LABS: BASOPHILS ABSOLUTE AUTO 0.06 K/mm3 (0.00-0.23); BASOPHILS PERCENT AUTO 0 % (0-2); EOSINOPHILS ABSOLUTE AUTO 0.04 K/mm3 (0.00-0.68); EOSINOPHILS PERCENT AUTO 0 % (0-6); Hematocrit 30.4 % (37.0-53.0); Hemoglobin 10.2 g/dL (13.5-17.5); IMMATURE GRAN ABSOLUTE AUTO 0.12 K/mm3 (0.00-0.10); IMMATURE GRAN PERCENT AUTO 1 % (0-1); LYMPHOCYTES ABSOLUTE AUTO 1.09 K/mm3 (0.84-5.20); LYMPHOCYTES PERCENT AUTO 6 % (21-46); MONOCYTES ABSOLUTE AUTO 1.67 K/mm3 (0.16-1.47); MONOCYTES PERCENT AUTO 9 % (4-13); Mean Corpuscular HGB 28.4 pg (26.0-34.0); Mean Corpuscular HGB Conc 33.6 g/dL (31.5-36.5); Mean Corpuscular Volume 85 fL (80-100); Mean Platelet Volume 9.7 fL (9.1-12.4); NEUTROPHILS ABSOLUTE AUTO 15.17 K/mm3 (1.96-9.15); NEUTROPHILS PERCENT AUTO 84 % (41-73); Platelet Count 363 K/mm3 (150-400); RDW Coefficient Variation 12.6 % (11.7-14.2); RDW Standard Deviation 38.6 fL (35.1-46.3); Red Blood Cell Count 3.59 M/mm3 (4.30-5.90); White Blood Cell Count 18.15 K/mm3 (4.00-11.30)
[2023-06-03 20:15] LABS: Albumin/Globulin Ratio 0.4 (0.8-1.8); Bilirubin, Total 0.3 mg/dL (0.1-1.0); Bun/Creatinine Ratio 37.3 (12.0-20.0); Calcium, Blood 8.8 mg/dL (8.5-10.1); Creatinine, Blood 0.72 mg/dL (0.60-1.20); Globulin, Blood 4.9 g/dL (2.2-4.0); Potassium, Blood 4.7 mmol/L (3.5-5.5); Total Protein, Blood 6.9 g/dL (6.4-8.2)
[2023-06-04 03:13] VITALS: BP 91/61
[2023-06-04 05:19] LABS: BASOPHILS ABSOLUTE AUTO 0.05 K/mm3 (0.00-0.23); BASOPHILS PERCENT AUTO 0 % (0-2); EOSINOPHILS ABSOLUTE AUTO 0.13 K/mm3 (0.00-0.68); EOSINOPHILS PERCENT AUTO 1 % (0-6); Hematocrit 26.5 % (37.0-53.0); Hemoglobin 8.8 g/dL (13.5-17.5); IMMATURE GRAN ABSOLUTE AUTO 0.05 K/mm3 (0.00-0.10); IMMATURE GRAN PERCENT AUTO 0 % (0-1); LYMPHOCYTES ABSOLUTE AUTO 1.22 K/mm3 (0.84-5.20); LYMPHOCYTES PERCENT AUTO 10 % (21-46); MONOCYTES PERCENT AUTO 10 % (4-13); Mean Corpuscular HGB 28.5 pg (26.0-34.0); Mean Corpuscular HGB Conc 33.2 g/dL (31.5-36.5); Mean Corpuscular Volume 86 fL (80-100); Mean Platelet Volume 9.7 fL (9.1-12.4); NEUTROPHILS ABSOLUTE AUTO 10.01 K/mm3 (1.96-9.15); NEUTROPHILS PERCENT AUTO 78 % (41-73); Platelet Count 332 K/mm3 (150-400); RDW Coefficient Variation 12.5 % (11.7-14.2); RDW Standard Deviation 39.3 fL (35.1-46.3); Red Blood Cell Count 3.09 M/mm3 (4.30-5.90); White Blood Cell Count 12.76 K/mm3 (4.00-11.30)
[2023-06-04 05:54] LABS: Albumin, Blood 1.7 g/dL (3.4-5.0); Albumin/Globulin Ratio 0.4 (0.8-1.8); Bilirubin, Total 0.2 mg/dL (0.1-1.0); Bun/Creatinine Ratio 29.8 (12.0-20.0); Calcium, Blood 8.2 mg/dL (8.5-10.1); Creatinine, Blood 0.87 mg/dL (0.60-1.20); Globulin, Blood 4.2 g/dL (2.2-4.0); Magnesium, Blood 2.1 mg/dL (1.6-2.4); Potassium, Blood 4.8 mmol/L (3.5-5.5); Total Protein, Blood 5.9 g/dL (6.4-8.2)
[2023-06-04 07:19] VITALS: BP 141/88
--- NOTE | 2023-06-04 07:54 | NUR ---
Shift Summary Pt admitted to this unit from ED with DX of osteomylitis of the L foot. His feet are chronically numb d/t neuropathy. Blood glucose in the ER was 437, upon arrival pt was given 30 units glargine and then later placed on Q6 Humilin R sliding scale. Pt states he does not monitor blood glucose or take insulin at home due to an insurance issue months ago. Pt has been NPO since 0000 for a possible procedure today.
--- NOTE | 2023-06-04 10:16 | NUR ---
PATIENT RESTING, WAKES EASILY, ALERT AND ORIENTED, DENIES NEED FOR PAIN MED PRESENTLY, CALL LIGHT WITH IN REACH, REPORT FROM JUSTYNA AMES
[2023-06-04 15:41] VITALS: BP 115/68
[2023-06-04] MEDS ORDERED: ALOGLIPTIN25 M1 PO (17:01)
[2023-06-04] MEDS ORDERED: CATAPRES0.2 M1 PO (17:02)
[2023-06-04] MEDS ORDERED: GLIP5ER PO (17:03)
[2023-06-04] MEDS ORDERED: TRULICITY1.5 MG/0.1 SC (17:04)
[2023-06-04] MEDS ORDERED: Prinivil10 MG PO (17:04)
[2023-06-04] MEDS ORDERED: ESCI20 PO (17:05)
[2023-06-04] MEDS ORDERED: Budeprion Xl300 MG PO (17:15)
--- NOTE | 2023-06-04 18:45 | NUR ---
SHIFT SUMMARY: PT A/O X 4, PIVOT TX TO CHAIR. PLEASANT AND COOPERATIVE. PT TO BE NPO AT [facility] FOR AMPUTATION OF LLE TOMORROW. PT EDUCATED ON WHAT TO EXPECT. PT A BIT ANXIOUS ABOUT PROCEDURE BUT APPEARS TO BE MANAGING ANXIETY WELL. PT DENIES PAIN TO L FOOT. WOUND CARE COMPLETED, CLEANSED WITH WOUND CLEANSER, APPLIED NON ADHERENT PAD AND WRAPPED WITH GAUZE AND TAPED INTO PLACE. PT DISCUSSED FOUL ODOR OF FOOT WOUND WITH THIS RN SO I OFFERED COFFEE GROUNDS TO PLACE IN ROOM WHICH HE AGREED TO. PT REPORTED IT HELPED WITH THE ODOR AND WAS THANKFUL. SOMEWHAT TACHICARDIC, PT ASYMPTOMATIC. DOES COMPLAIN HE FEELS COLD AND HAS CHILLS OCCASIONALLY BUT IS AFEBRILE.
[2023-06-04 19:50] VITALS: BP 126/72
[2023-06-05] VITALS (20 sets, daily range): BP systolic 83–151; BP diastolic 53–91
[2023-06-05 04:55] LABS: Hematocrit 24.8 % (37.0-53.0); Hemoglobin 8.2 g/dL (13.5-17.5); Mean Corpuscular HGB 28.4 pg (26.0-34.0); Mean Corpuscular HGB Conc 33.1 g/dL (31.5-36.5); Mean Corpuscular Volume 86 fL (80-100); Mean Platelet Volume 9.5 fL (9.1-12.4); Platelet Count 309 K/mm3 (150-400); RDW Coefficient Variation 12.7 % (11.7-14.2); RDW Standard Deviation 39.9 fL (35.1-46.3); Red Blood Cell Count 2.89 M/mm3 (4.30-5.90); White Blood Cell Count 12.11 K/mm3 (4.00-11.30)
[2023-06-05 05:41] LABS: Percent Saturation 14.7 % (20.0-50.0)
--- NOTE | 2023-06-05 06:44 | NUR ---
SHIFT SUMMARY: PT IS ADMITTED FOR OSTEOMYELITIS AND IS A FULL CODE. IS ALERT AND ABLE TO MAKE NEEDS KNOWN ADLS ARE 1P MIN FOR MOST ACTIVITIES THROUGH THE SHIFT. DENIES PAIN OR DISCOMFORT WHEN ASKED. TELLY REPORTS SINUS @ 80. IV TO RIGHT FOREARM IS PATENT WITH DRESSING THAT IS CDI. NPO SINCE MIDNIGHT.
--- NOTE | 2023-06-05 15:17 | NUR ---
PT TAKEN TO THE ER FOR LEFT BKA VIA WHEELCHAIR. PT IS A/OX4 MOTHER WAS AT THE BEDSIDE
--- NOTE | 2023-06-05 18:12 | NUR ---
PT IS A/OX4, PLEASANT AND COOPERATIVE. THE PT WAS UP IND TODAY. PT WAS MEDICATED FOR BACK AND NECK PAIN THIS AM AND THEN MEDICATED FOR HEADACHE THIS AFTERNOON. PT WAS UP AND SHOWERED TODAY. PT WAS NPO EXCEPT SIPS WITH MEDS T/O THE DAY. THE PTS MOTHER WAS AT THE BEDSIDE THIS AFTERNOON. PT WAS TAKEN TO THE OR THIS AFTERNOON AND CONTINUES TO BE IN THE OR AT THIS TIME.
[2023-06-06] VITALS: BP 102/67
[2023-06-06 01:04] VITALS: BP 108/67
[2023-06-06 01:12] LABS: Hematocrit 25.6 % (37.0-53.0); Hemoglobin 8.3 g/dL (13.5-17.5)
[2023-06-06 04:49] VITALS: BP 122/86
--- NOTE | 2023-06-06 04:55 | NUR ---
SHIFT SUMMARY NO ACUTE CHANGES SINCE ARRIVAL FROM PACU. PT DENIES PAIN AND NAUSEA. DRESSING ON LLE C/D/I. NO SIGNS OF BLEEDING. EVIE WRAP AND SOCK IN PLACE. BP STABLE. ON RA WITH SPO2 >92%. SR WITH HR 80'S. AFEBRILE. PT PALE AND DIAPHORETIC T/O THIS SHIFT. A&O X4. ABLE TO MAKE NEEDS KNOWN. HBG STABLE. VOIDING WELL. BED IN LOWEST POSITION AND CALL LIGHT WITHIN REACH. THIS RN WILL REPORT TO ONCOMING DAYSHIFT RN.
[2023-06-06 05:07] LABS: Hematocrit 27.8 % (37.0-53.0); Hemoglobin 9.1 g/dL (13.5-17.5); Mean Corpuscular HGB 28.3 pg (26.0-34.0); Mean Corpuscular HGB Conc 32.7 g/dL (31.5-36.5); Mean Corpuscular Volume 86 fL (80-100); Platelet Count 355 K/mm3 (150-400); RDW Coefficient Variation 12.7 % (11.7-14.2); RDW Standard Deviation 40.1 fL (35.1-46.3); Red Blood Cell Count 3.22 M/mm3 (4.30-5.90); White Blood Cell Count 9.89 K/mm3 (4.00-11.30)
[2023-06-06 06:12] LABS: Bun/Creatinine Ratio 35.1 (12.0-20.0); Calcium, Blood 8.3 mg/dL (8.5-10.1); Creatinine, Blood 0.71 mg/dL (0.60-1.20); Potassium, Blood 4.6 mmol/L (3.5-5.5)
[2023-06-06 07:46] VITALS: BP 149/87
[2023-06-06 15:16] VITALS: BP 121/77
--- NOTE | 2023-06-06 18:34 | NUR ---
END OF SHIFT PT A&O X4. VSS. SPO2 > 92% ON RA. MONITOR SHOWING SR, HR 80s-90s. LEFT BKA DONE YESTERDAY. PT DENYING PAIN, REPORTING L KNEE "FEELS FLEXED." PT DENYING NEED FOR PRN NORCO, DID TAKE PRN TYLENOL X1 THIS SHIFT W/ PT REPORT OF IMPROVEMENT. PT CBGs ELEVATED THIS SHIFT. MD BANKS W/ NEW ORDERS FOR ADDITIONAL SHORT ACTING INSULIN BE GIVEN & INCREASED DOSE OF NIGHT TIME LONG ACTING INSULIN DOSE.
[2023-06-06 20:55] VITALS: BP 109/75
[2023-06-07 03:10] VITALS: BP 121/80
[2023-06-07 03:59] LABS: Hemoglobin 7.5 g/dL (13.5-17.5)
[2023-06-07 04:16] LABS: Bun/Creatinine Ratio 36.7 (12.0-20.0); Creatinine, Blood 0.68 mg/dL (0.60-1.20); Potassium, Blood 4.3 mmol/L (3.5-5.5)
--- NOTE | 2023-06-07 04:58 | NUR ---
SHIFT SUMMARY THIS RN ASSUMED CARE OF PATIENT AT 1900. PT A&O X4. ABLE TO MAKE NEEDS KNOWN. PT REPORTING LLE AMPUTATION SITE FEELING MORE "TIGHT". MD PHILIP WITH ORDERS FOR LYRICA FOR PAIN CONTROL D/T PT REPORTING THAT GABAPENTIN GIVES HIM POOR SIDE EFFECTS AND NOT WANTING TO TAKE IT. PT VOIDING WELL. MD FONG TO BEDSIDE TO EVAL PATIENT DURING THE NIGHT. ORDER TO CHANGE DRESSING DURING DAYSHIFT TODAY, SEE NURSE NOTIFY ORDER FOR MORE INFO. OTHERWISE NO ACUTE EVENTS OVERNIGHT. VITALS STABLE. BED IN LOWEST POSITION AND CALL LIGHT WITHIN REACH. THIS RN WILL REPORT TO ONCOMING DAYSHIFT RN.
[2023-06-07 07:20] VITALS: BP 152/91
[2023-06-07 08:12] LABS: HEMOGLOBIN A1C 14.1 % (4.8-5.6)
--- NOTE | 2023-06-07 09:30 | NUR ---
AM NOTE: PATIENT ALERT AND ORIENTED X4. ABLE TO COMMUNICATE ALL NEEDS, USING CALL LIGHT NEEDED. PERRLA, DENIES HEADACHE/VISION CHANGES. CHRONIC NEUROPATHY TO RLE. S/P LEFT BKA ON 06/05. PT/OT ORDERS IN PLACE. PATIENT ABLE TO TURN IN BED AND SIT IN EDGE OF BED IND. SURGICAL STATUS NO TELE. BP STABLE. DENIES CHEST PAIN/PRESSURE/PALPIATIONS. PPP. NO EDEMA NOTED. SC LOVENOX GIVEN PER EMAR. SCD TO RLE. ON ROOM AIR SATING ABOVE 95%. DENIES SOB/COUGH. EVEN AND UNLABORED RESPIRATIONS. LUNGS SOUNDING CLEAR THROUGOUT. BOWEL TONES PRESENT. PATIENT STATES HE IS HAVING SMALL HARD BOWEL MOVEMENTS. STOOL SOFTNER GIVEN THIS AM PER EMAR. EATING AND USING URINAL WNL. SWALLOWING PILLS WHOLE WITH WATER. SKIN OVERALL PALE WITH SCATTERED SCABS AND BRUISING. LEFT BKA SITE WNL. DRESSING CHANGED PER ORDERS. PATIENT STATES HE HAS INTERMIT LEFT STUMP PAIN AND DESCRIBES IT A TIGHT FEELING. PRN PAIN MEDS AVAILIBLE. CALL LIGHT IN REACH. PT/OT IN ROOM AT THIS TIME.
[2023-06-07 11:24] VITALS: BP 145/87
[2023-06-07 15:48] VITALS: BP 162/94
[2023-06-07 16:42] VITALS: BP 153/94
--- NOTE | 2023-06-07 16:44 | NUR ---
TRANSFER: PATIENT TRANSFER TO [facility] AT THIS TIME. REPORTED OFF TO ADAM RN. NO ACUTE CHANGES, SEE PREVIOUS NOTE. DRESSING CHANGED THIS AM BY THIS RN. PATIENT DENIES PAIN THROUGHOUT SHIFT. VISITORS AT BEDSIDE DURING TRANSFER. PATIENT MOVED TO [facility] WITH ALL PERSONAL BELONGINGS AND CHART.
[2023-06-07 17:38] LABS: Hematocrit 27.4 % (37.0-53.0); Hemoglobin 9.1 g/dL (13.5-17.5)
[2023-06-07 20:08] VITALS: BP 127/84
[2023-06-08 02:29] VITALS: BP 123/82
[2023-06-08 04:55] LABS: Hematocrit 24.1 % (37.0-53.0); Hemoglobin 7.8 g/dL (13.5-17.5); Mean Corpuscular HGB 27.8 pg (26.0-34.0); Mean Corpuscular HGB Conc 32.4 g/dL (31.5-36.5); Mean Corpuscular Volume 86 fL (80-100); Mean Platelet Volume 9.2 fL (9.1-12.4); Platelet Count 390 K/mm3 (150-400); RDW Standard Deviation 40.3 fL (35.1-46.3); Red Blood Cell Count 2.81 M/mm3 (4.30-5.90); White Blood Cell Count 11.11 K/mm3 (4.00-11.30)
--- NOTE | 2023-06-08 06:08 | NUR ---
SHIFT SUMMARY NO ACUTE CHANGES TO REPORT OVERNIGHT. PT MEDICATED FOR PAIN X1, HE DECLINES ANYTHING ELSE FOR PAIN T/O THE NIGHT, L BKA WNL. IV ANTIBIOTICS CONTINUED PER ORDERS. VITALS ARE STABLE. PLAN OF CARE REMAINS UNCHANGED. BED IN LOWEST POSITION, CALL LIGHT WITHIN REACH.
[2023-06-08 07:13] VITALS: BP 117/86
--- NOTE | 2023-06-08 16:00 | NUR ---
discharge to facility, trent transported via [employer]aki wheelchair. all belongings taken with patient.
== END 2023-06-08 15:22 | DRG 854 ==
LOC: ER 17:38 → MEDS 22:47 → PCU 22:47 → MEDS 06-04 00:07 → PCU 06-05 19:34 → SURS 06-07 16:37
PROVIDERS: Family Medicine; Internal Medicine; Orthopaedic Surgery Sports Medicine; Student in an Organized Health Care Education/Training Program; ADMIT Student in an Organized Health Care Education/Training Program
PROC: 3E03329 Introduction of Other Anti-infective into Peripheral Vein, Percutaneous Approach (ICD-10-PCS; 2023-06-03)
PROC: 0Y6J0Z3 Detachment at Left Lower Leg, Low, Open Approach (ICD-10-PCS; principal; 2023-06-05 15:00)
DX: A41.9 Sepsis, unspecified organism (principal); E87.1 Hypo-osmolality and hyponatremia; M86.8X7 Other osteomyelitis, ankle and foot; L97.429 Non-pressure chronic ulcer of left heel and midfoot with unspecified severity; E11.69 Type 2 diabetes mellitus with other specified complication; F32.A Depression, unspecified; E61.1 Iron deficiency; E11.40 Type 2 diabetes mellitus with diabetic neuropathy, unspecified; E78.5 Hyperlipidemia, unspecified; D64.9 Anemia, unspecified; E11.65 Type 2 diabetes mellitus with hyperglycemia; E11.621 Type 2 diabetes mellitus with foot ulcer; Z91.040 Latex allergy status; Z79.4 Long term (current) use of insulin; Z89.411 Acquired absence of right great toe; Z87.891 Personal history of nicotine dependence; Z88.8 Allergy status to other drugs, medicaments and biological substances; Z79.84 Long term (current) use of oral hypoglycemic drugs
CPT/HCPCS: 36415; 73650; 73701; 80048; 80053; 82607; 82728; 82746; 82947; 83036; 83540; 83550; 83605; 83735; 85014; 85018; 85025; 85027; 85651; 86140; 86850; 86900; 86901; 86923; 87040; 88307; 96365; 96375; 97110; 97162; 97166; 97530; 99285-25; A9270; J0295; J0690; J0692; J1100; J1650; J1815; J2250; J2371; J2405; J2704; J2765; J3010; J3370; J7030; J7050; J7120; Q9967

== ENCOUNTER → 2023-09-02 | Outpatient (CLI) | payer MEDICARE, OTHER ==
[~2023-09-02] MED LIST changes: +ALOGLIPTIN25 M1 PO; +Budeprion Xl300 MG PO; +CATAPRES0.2 M1 PO; +Cephalexin500 M1 PO; +ESCI20 PO; +TRULICITY1.5 MG/0.1 SC
[2023-09-02 17:40] LABS: BASOPHILS ABSOLUTE AUTO 0.06 K/mm3 (0.00-0.23); BASOPHILS PERCENT AUTO 1 % (0-2); EOSINOPHILS ABSOLUTE AUTO 0.18 K/mm3 (0.00-0.68); EOSINOPHILS PERCENT AUTO 3 % (0-6); Hematocrit 37.7 % (37.0-53.0); Hemoglobin 12.6 g/dL (13.5-17.5); IMMATURE GRAN ABSOLUTE AUTO 0.01 K/mm3 (0.00-0.10); IMMATURE GRAN PERCENT AUTO 0 % (0-1); LYMPHOCYTES ABSOLUTE AUTO 1.29 K/mm3 (0.84-5.20); LYMPHOCYTES PERCENT AUTO 20 % (21-46); MONOCYTES ABSOLUTE AUTO 0.46 K/mm3 (0.16-1.47); MONOCYTES PERCENT AUTO 7 % (4-13); Mean Corpuscular HGB 27.5 pg (26.0-34.0); Mean Corpuscular HGB Conc 33.4 g/dL (31.5-36.5); Mean Corpuscular Volume 82 fL (80-100); Mean Platelet Volume 9.7 fL (9.1-12.4); NEUTROPHILS ABSOLUTE AUTO 4.34 K/mm3 (1.96-9.15); NEUTROPHILS PERCENT AUTO 69 % (41-73); Platelet Count 283 K/mm3 (150-400); RDW Coefficient Variation 14.1 % (11.7-14.2); RDW Standard Deviation 41.9 fL (35.1-46.3); Red Blood Cell Count 4.59 M/mm3 (4.30-5.90); White Blood Cell Count 6.34 K/mm3 (4.00-11.30)
[2023-09-02 20:41] LABS: Alanine Aminotransfer (ALT/SGP 37 U/L (12-78); Albumin, Blood 3.3 g/dL (3.4-5.0); Albumin/Globulin Ratio 0.9 (0.8-1.8); Alk Phos 118 U/L (50-136); Anion Gap 6 mmol/L (3-11); Aspartate Aminotrans (AST/SGOT 35 U/L (12-37); Bilirubin, Total 0.3 mg/dL (0.1-1.0); Blood Urea Nitrogen 21 mg/dL (8-24); Bun/Creatinine Ratio 21.5 (12.0-20.0); CO2, Blood 31 mmol/L (21-32); Calcium, Blood 9.4 mg/dL (8.5-10.1); Chloride, Blood 106 mmol/L (98-108); Creatinine, Blood 0.98 mg/dL (0.60-1.20); Globulin, Blood 3.7 g/dL (2.2-4.0); Glomerular Filtration Rate 92 (60-); Glucose, Blood 154 mg/dL (70-99); PSA, %Free 25.9 %; PSA, Free 0.072 ng/mL; Potassium, Blood 4.7 mmol/L (3.5-5.5); Prostate Specific Antigen 0.278 ng/mL (0.000-4.000); Sodium, Blood 138 mmol/L (136-145)
== END | disposition home or self-care (01) ==
LOC: LAB SHORT 14:50 → LAB 14:50
PROVIDERS: Family Medicine
DX: E11.65 Type 2 diabetes mellitus with hyperglycemia (principal); R33.9 Retention of urine, unspecified
CPT/HCPCS: 80053; 83036; 84153; 84154; 85025; 87077; 87086; 87186

== ENCOUNTER 2023-10-04 03:57 | Day surgery (SDC) | payer MEDICARE, OTHER ==
[2023-10-04] MEDS ORDERED: Lidocaine HCl 4% Cream 5 GM ONE (13:41)
== END 2023-10-04 23:06 | disposition home or self-care (01) ==
LOC: WOUND 03:57
DX: E11.622 Type 2 diabetes mellitus with other skin ulcer (principal); L97.812 Non-pressure chronic ulcer of other part of right lower leg with fat layer exposed; L97.822 Non-pressure chronic ulcer of other part of left lower leg with fat layer exposed; S50.811A Abrasion of right forearm, initial encounter; S90.414A Abrasion, right lesser toe(s), initial encounter; X58.XXXA Exposure to other specified factors, initial encounter; E11.65 Type 2 diabetes mellitus with hyperglycemia; Z89.512 Acquired absence of left leg below knee; Z86.31 Personal history of diabetic foot ulcer; R33.9 Retention of urine, unspecified; D64.9 Anemia, unspecified; R30.0 Dysuria
CPT/HCPCS: 80061; 81001; 82728; 83540; 83550; 87086; A6213; A9270

== ENCOUNTER 2023-10-10 04:39 | Day surgery (SDC) | payer MEDICARE, OTHER | END 2023-10-10 23:07 | disposition home or self-care (01) | LOC: WOUND 04:39 | DX: E11.622 Type 2 diabetes mellitus with other skin ulcer (principal); L97.812 Non-pressure chronic ulcer of other part of right lower leg with fat layer exposed; L97.822 Non-pressure chronic ulcer of other part of left lower leg with fat layer exposed; S91.109A Unspecified open wound of unspecified toe(s) without damage to nail, initial encounter; S51.801A Unspecified open wound of right forearm, initial encounter; X58.XXXA Exposure to other specified factors, initial encounter; Z89.512 Acquired absence of left leg below knee; Z86.31 Personal history of diabetic foot ulcer; E11.65 Type 2 diabetes mellitus with hyperglycemia | CPT/HCPCS: A6213; G0463 ==

== ENCOUNTER 2023-10-28 04:15 | Day surgery (SDC) | payer MEDICARE, OTHER | END 2023-10-28 22:54 | disposition home or self-care (01) | LOC: WOUND 04:15 | DX: E11.622 Type 2 diabetes mellitus with other skin ulcer (principal); L97.812 Non-pressure chronic ulcer of other part of right lower leg with fat layer exposed; L97.822 Non-pressure chronic ulcer of other part of left lower leg with fat layer exposed; E11.65 Type 2 diabetes mellitus with hyperglycemia; Z89.512 Acquired absence of left leg below knee; Z86.31 Personal history of diabetic foot ulcer ==

== ENCOUNTER → 2023-12-09 | Outpatient (CLI) | payer MEDICARE, OTHER | LOC: LAB SHORT 16:33 → LAB 16:33 | DX: N39.0 Urinary tract infection, site not specified (principal) | CPT/HCPCS: 87086 ==

== ENCOUNTER 2023-12-16 02:39 | Day surgery (SDC) | payer MEDICARE, OTHER | END 2023-12-16 23:36 | disposition home or self-care (01) | LOC: WOUND 02:39 | DX: E11.622 Type 2 diabetes mellitus with other skin ulcer (principal); L97.822 Non-pressure chronic ulcer of other part of left lower leg with fat layer exposed; S81.001A Unspecified open wound, right knee, initial encounter; S81.801A Unspecified open wound, right lower leg, initial encounter; X58.XXXA Exposure to other specified factors, initial encounter; Z86.31 Personal history of diabetic foot ulcer; Z89.512 Acquired absence of left leg below knee | CPT/HCPCS: A6213; G0463 ==

== ENCOUNTER 2023-12-26 02:37 | Day surgery (SDC) | payer MEDICARE, OTHER | END 2023-12-26 23:17 | disposition home or self-care (01) | LOC: WOUND 02:37 | DX: E11.622 Type 2 diabetes mellitus with other skin ulcer (principal); L97.822 Non-pressure chronic ulcer of other part of left lower leg with fat layer exposed; S80.211A Abrasion, right knee, initial encounter; X58.XXXA Exposure to other specified factors, initial encounter; Z89.512 Acquired absence of left leg below knee | CPT/HCPCS: A6213; G0463 ==

== ENCOUNTER 2024-01-02 02:34 | Day surgery (SDC) | payer MEDICARE, OTHER | END 2024-01-02 22:48 | disposition home or self-care (01) | LOC: WOUND 02:34 | DX: E11.622 Type 2 diabetes mellitus with other skin ulcer (principal); L97.822 Non-pressure chronic ulcer of other part of left lower leg with fat layer exposed; L97.812 Non-pressure chronic ulcer of other part of right lower leg with fat layer exposed; E11.65 Type 2 diabetes mellitus with hyperglycemia; Z89.512 Acquired absence of left leg below knee | CPT/HCPCS: A6213; G0463 ==

== ENCOUNTER 2024-01-14 01:56 | Day surgery (SDC) | payer MEDICARE, OTHER | END 2024-01-14 23:20 | disposition home or self-care (01) | LOC: WOUND 01:56 | DX: E11.622 Type 2 diabetes mellitus with other skin ulcer (principal); L97.822 Non-pressure chronic ulcer of other part of left lower leg with fat layer exposed; S80.211D Abrasion, right knee, subsequent encounter; S81.801D Unspecified open wound, right lower leg, subsequent encounter; E11.65 Type 2 diabetes mellitus with hyperglycemia; Z87.891 Personal history of nicotine dependence; Z86.31 Personal history of diabetic foot ulcer; Z89.512 Acquired absence of left leg below knee; X58.XXXD Exposure to other specified factors, subsequent encounter | CPT/HCPCS: A6213; G0463 ==

== ENCOUNTER 2024-02-10 01:03 | Day surgery (SDC) | payer MEDICARE, OTHER ==
[~2024-02-10 01:03] MED LIST changes: +METOPROLOL SUCC25 MG PO; +TAMS.4ER PO
== END 2024-02-11 22:52 | disposition home or self-care (01) ==
LOC: WOUND 01:03
DX: E11.622 Type 2 diabetes mellitus with other skin ulcer (principal); L97.922 Non-pressure chronic ulcer of unspecified part of left lower leg with fat layer exposed; L97.812 Non-pressure chronic ulcer of other part of right lower leg with fat layer exposed; E11.65 Type 2 diabetes mellitus with hyperglycemia; Z89.512 Acquired absence of left leg below knee; Z86.31 Personal history of diabetic foot ulcer
CPT/HCPCS: A6213; G0463

== ENCOUNTER 2024-02-13 14:59 | Emergency (ER) | payer MEDICARE, OTHER ==
[~2024-02-13] VITALS: Ht 167.6 cm; Wt 113.4 kg
[2024-02-13 15:15] LABS: BASOPHILS ABSOLUTE AUTO 0.07 K/mm3 (0.00-0.23); BASOPHILS PERCENT AUTO 1 % (0-2); EOSINOPHILS ABSOLUTE AUTO 0.23 K/mm3 (0.00-0.68); EOSINOPHILS PERCENT AUTO 3 % (0-6); Hematocrit 31.4 % (37.0-53.0); Hemoglobin 10.5 g/dL (13.5-17.5); IMMATURE GRAN ABSOLUTE AUTO 0.08 K/mm3 (0.00-0.10); IMMATURE GRAN PERCENT AUTO 1 % (0-1); LYMPHOCYTES ABSOLUTE AUTO 2.18 K/mm3 (0.84-5.20); LYMPHOCYTES PERCENT AUTO 26 % (21-46); MONOCYTES ABSOLUTE AUTO 0.86 K/mm3 (0.16-1.47); MONOCYTES PERCENT AUTO 10 % (4-13); Mean Corpuscular HGB 28.6 pg (26.0-34.0); Mean Corpuscular HGB Conc 33.4 g/dL (31.5-36.5); Mean Corpuscular Volume 86 fL (80-100); Mean Platelet Volume 9.7 fL (9.1-12.4); NEUTROPHILS ABSOLUTE AUTO 5.11 K/mm3 (1.96-9.15); NEUTROPHILS PERCENT AUTO 60 % (41-73); Platelet Count 285 K/mm3 (150-400); RDW Coefficient Variation 12.6 % (11.7-14.2); RDW Standard Deviation 38.7 fL (35.1-46.3); Red Blood Cell Count 3.67 M/mm3 (4.30-5.90); White Blood Cell Count 8.53 K/mm3 (4.00-11.30)
[2024-02-13] MEDS ORDERED: Ondansetron HCl 2 MG / ML 2ML Vial ONE (15:39)
[2024-02-13 15:40] LABS: Alanine Aminotransfer (ALT/SGP 37 U/L (12-78); Albumin, Blood 2.8 g/dL (3.4-5.0); Albumin/Globulin Ratio 0.6 (0.8-1.8); Alk Phos 109 U/L (50-136); Anion Gap 10 mmol/L (3-11); Aspartate Aminotrans (AST/SGOT 30 U/L (12-37); Bilirubin, Total 0.3 mg/dL (0.1-1.0); Blood Urea Nitrogen 29 mg/dL (8-24); CO2, Blood 28 mmol/L (21-32); Calcium, Blood 9.5 mg/dL (8.5-10.1); Chloride, Blood 106 mmol/L (98-108); Creatinine, Blood 0.93 mg/dL (0.60-1.20); Globulin, Blood 4.4 g/dL (2.2-4.0); Glomerular Filtration Rate 98 (60-); Glucose, Blood 105 mg/dL (70-99); Potassium, Blood 5.1 mmol/L (3.5-5.5); Sodium, Blood 139 mmol/L (136-145); Total Protein, Blood 7.2 g/dL (6.4-8.2)
[2024-02-13 15:41] LABS: Ethanol (Alcohol), Blood, Med <3 mg/dL
[2024-02-13 15:45] LABS: International Normalized Ratio 0.96; Prothrombin Time Results 10.3 Sec (9.7-11.5)
[2024-02-13] MEDS ORDERED: Ondansetron HCl 2 MG / ML 2ML Vial IV ONE (15:55)
[2024-02-13 16:58] LABS: Source, Urine Clean Catch
[2024-02-13 17:04] LABS: Appearance, Urine Clear (Clear); Bilirubin, Urine Neg (Neg); Blood, Urine 2+ (Neg); Color, Urine Yellow (P-Yellow); Glucose Qualitative, Urine 2+ (Neg); Ketones, Urine Neg (Neg); Leukocyte Esterase, Urine 1+ (Neg); Nitrite, Urine Neg (Neg); Protein, Urine 3+ (Neg); Specific Gravity, Urine 1.005 (1.003-1.022); Urobilinogen, Urine NORM (Normal)
[2024-02-13 17:13] LABS: Bacteria Few /hpf; Spermatozoa Few /hpf; Squamous Epithelial Cells Not Seen /hpf (Few)
[2024-02-13 17:16] LABS: U Amphetamine Screen Not Detected; U Barbituate Screen Not Detected; U Benzodiazapine Screen Not Detected; U Buprenorphine Screen Not Detected; U Cannabinoids Screen Not Detected; U Cocaine Screen Not Detected; U Methadone Screen Not Detected; U Methamphetamine Screen Not Detected; U Opiates Screen Not Detected; U Oxycodone Screen Not Detected; U Phencyclidine Screen Not Detected
[2024-02-13] MEDS ORDERED: Aspirin 325 MG Tab PO ONE (17:35)
[2024-02-13] MEDS ORDERED: Clopidogrel Bisulfate 75 MG Tab PO ONE (17:35)
[2024-02-13] MEDS ORDERED: Aspir 8181 MG PO (17:37)
[2024-02-13] MEDS ORDERED: CLOP75 PO (17:37)
[2024-02-13 17:56] VITALS: BP 143/105
== END 2024-02-13 17:54 | disposition home or self-care (01) ==
LOC: ER 14:59
PROVIDERS: Emergency Medicine
DX: G45.9 Transient cerebral ischemic attack, unspecified (principal); E11.9 Type 2 diabetes mellitus without complications; E78.5 Hyperlipidemia, unspecified
CPT/HCPCS: 70450; 70496; 70498; 80053; 80320; 81001; 82947; 83605; 83690; 83735; 85025; 85610; 87086; 93005; 93010; 96374-59; 99285-25; A9270; J2405; Q9967

== ENCOUNTER 2024-03-11 04:27 | Day surgery (SDC) | payer MEDICARE, OTHER ==
[~2024-03-11 04:27] MED LIST changes: +Aspir 8181 MG PO; +CLOP75 PO
[2024-03-11 14:21] VITALS: BP 158/91
== END 2024-03-11 15:05 | disposition home or self-care (01) ==
LOC: ATC 04:27
DX: R33.9 Retention of urine, unspecified (principal); I10 Essential (primary) hypertension; E78.5 Hyperlipidemia, unspecified; E11.9 Type 2 diabetes mellitus without complications; Z88.6 Allergy status to analgesic agent; Z79.4 Long term (current) use of insulin; Z79.84 Long term (current) use of oral hypoglycemic drugs; Z79.899 Other long term (current) drug therapy
CPT/HCPCS: 51702; 51798

== ENCOUNTER 2024-03-12 02:57 | Day surgery (SDC) | payer MEDICARE, OTHER | END 2024-03-12 23:00 | disposition home or self-care (01) | LOC: WOUND 02:57 | DX: E11.622 Type 2 diabetes mellitus with other skin ulcer (principal); L97.822 Non-pressure chronic ulcer of other part of left lower leg with fat layer exposed; L97.812 Non-pressure chronic ulcer of other part of right lower leg with fat layer exposed; L89.92 Pressure ulcer of unspecified site, stage 2; Z89.512 Acquired absence of left leg below knee; E11.65 Type 2 diabetes mellitus with hyperglycemia; Z87.891 Personal history of nicotine dependence | CPT/HCPCS: A6213; G0463 ==

== ENCOUNTER → 2024-03-17 | Outpatient (CLI) | payer MEDICARE, OTHER | LOC: LAB 16:15 → LAB SHORT 16:15 | DX: B49 Unspecified mycosis (principal); T83.511A Infection and inflammatory reaction due to indwelling urethral catheter, initial encounter | CPT/HCPCS: 87086 ==

== ENCOUNTER 2024-03-24 03:28 | Day surgery (SDC) | payer MEDICARE, OTHER | END 2024-03-24 23:00 | LOC: WOUND 03:28 | DX: E11.622 Type 2 diabetes mellitus with other skin ulcer (principal); L97.822 Non-pressure chronic ulcer of other part of left lower leg with fat layer exposed; S81.001D Unspecified open wound, right knee, subsequent encounter; Z87.891 Personal history of nicotine dependence; X58.XXXD Exposure to other specified factors, subsequent encounter; Z89.512 Acquired absence of left leg below knee | CPT/HCPCS: A6213; G0463 ==

== ENCOUNTER 2024-04-15 03:58 | Day surgery (SDC) | payer MEDICARE, OTHER | END 2024-04-15 23:59 | disposition home or self-care (01) | LOC: WOUND 03:58 | DX: E11.622 Type 2 diabetes mellitus with other skin ulcer (principal); L97.822 Non-pressure chronic ulcer of other part of left lower leg with fat layer exposed; S81.011D Laceration without foreign body, right knee, subsequent encounter; E11.40 Type 2 diabetes mellitus with diabetic neuropathy, unspecified; I10 Essential (primary) hypertension; Z79.4 Long term (current) use of insulin; Z87.891 Personal history of nicotine dependence; Z89.512 Acquired absence of left leg below knee | CPT/HCPCS: A6213; G0463 ==

== ENCOUNTER 2024-04-22 15:17 | Day surgery (SDC) | payer MEDICARE, OTHER | END 2024-04-22 23:00 | disposition home or self-care (01) | LOC: WOUND 15:17 | DX: E11.622 Type 2 diabetes mellitus with other skin ulcer (principal); L97.822 Non-pressure chronic ulcer of other part of left lower leg with fat layer exposed; E11.10 Type 2 diabetes mellitus with ketoacidosis without coma; S81.001D Unspecified open wound, right knee, subsequent encounter; L02.31 Cutaneous abscess of buttock; L97.812 Non-pressure chronic ulcer of other part of right lower leg with fat layer exposed; L89.92 Pressure ulcer of unspecified site, stage 2; E11.65 Type 2 diabetes mellitus with hyperglycemia; X58.XXXD Exposure to other specified factors, subsequent encounter; Z89.512 Acquired absence of left leg below knee; Z86.31 Personal history of diabetic foot ulcer | CPT/HCPCS: G0463 ==

== ENCOUNTER 2024-05-21 10:22 | Day surgery (SDC) | payer MEDICARE, OTHER ==
[2024-05-21] MEDS ORDERED: Lidocaine HCl 4% Cream 5 GM ONE (15:13)
== END 2024-05-21 23:00 | disposition home or self-care (01) ==
LOC: WOUND 10:22
DX: S81.812D Laceration without foreign body, left lower leg, subsequent encounter (principal); S81.811D Laceration without foreign body, right lower leg, subsequent encounter; S81.801D Unspecified open wound, right lower leg, subsequent encounter; X58.XXXD Exposure to other specified factors, subsequent encounter; E11.65 Type 2 diabetes mellitus with hyperglycemia; Z89.512 Acquired absence of left leg below knee; Z87.891 Personal history of nicotine dependence; Z79.4 Long term (current) use of insulin
CPT/HCPCS: 87070; 87205; A6213; A9270; G0463

== ENCOUNTER 2024-06-04 05:42 | Day surgery (SDC) | payer MEDICARE, OTHER | END 2024-06-04 23:00 | disposition home or self-care (01) | LOC: WOUND 05:42 | DX: E11.622 Type 2 diabetes mellitus with other skin ulcer (principal); L97.812 Non-pressure chronic ulcer of other part of right lower leg with fat layer exposed; S81.812D Laceration without foreign body, left lower leg, subsequent encounter; S81.811D Laceration without foreign body, right lower leg, subsequent encounter; S89.81XD Other specified injuries of right lower leg, subsequent encounter; X58.XXXD Exposure to other specified factors, subsequent encounter; Z79.4 Long term (current) use of insulin; Z87.891 Personal history of nicotine dependence; Z89.512 Acquired absence of left leg below knee | CPT/HCPCS: A6213; G0463 ==

== ENCOUNTER 2024-06-19 04:43 | Day surgery (SDC) | payer MEDICARE, OTHER | END 2024-06-19 23:00 | disposition home or self-care (01) | LOC: WOUND 04:43 | DX: E11.622 Type 2 diabetes mellitus with other skin ulcer (principal); L97.812 Non-pressure chronic ulcer of other part of right lower leg with fat layer exposed; Z79.4 Long term (current) use of insulin; Z87.891 Personal history of nicotine dependence; Z89.512 Acquired absence of left leg below knee | CPT/HCPCS: A6213; G0463 ==

== ENCOUNTER 2024-06-26 06:22 | Day surgery (SDC) | payer MEDICARE, OTHER | END 2024-06-26 23:00 | disposition home or self-care (01) | LOC: WOUND 06:22 | DX: E11.622 Type 2 diabetes mellitus with other skin ulcer (principal); L97.812 Non-pressure chronic ulcer of other part of right lower leg with fat layer exposed; E11.65 Type 2 diabetes mellitus with hyperglycemia; E11.10 Type 2 diabetes mellitus with ketoacidosis without coma; L97.922 Non-pressure chronic ulcer of unspecified part of left lower leg with fat layer exposed; L89.92 Pressure ulcer of unspecified site, stage 2; Z89.512 Acquired absence of left leg below knee; Z86.31 Personal history of diabetic foot ulcer | CPT/HCPCS: A6213; G0463 ==

== ENCOUNTER 2024-07-01 06:37 | Day surgery (SDC) | payer MEDICARE, OTHER | END 2024-07-01 23:04 | disposition home or self-care (01) | LOC: WOUND 06:37 | DX: E11.622 Type 2 diabetes mellitus with other skin ulcer (principal); L97.812 Non-pressure chronic ulcer of other part of right lower leg with fat layer exposed; L89.92 Pressure ulcer of unspecified site, stage 2; E11.65 Type 2 diabetes mellitus with hyperglycemia; Z86.31 Personal history of diabetic foot ulcer; Z89.512 Acquired absence of left leg below knee | CPT/HCPCS: A6213; G0463 ==

== ENCOUNTER 2024-07-16 01:40 | Day surgery (SDC) | payer MEDICARE, OTHER ==
[2024-07-16] MEDS ORDERED: Lidocaine HCl 4% Cream 5 GM ONE (13:04)
[2024-07-16] MEDS ORDERED: Silver Nitr/Potassium Nitrate 1 EA APPL ONE (13:59)
[2024-07-17] MEDS ORDERED: CLIN300 PO (23:35)
== END 2024-07-16 23:00 | disposition home or self-care (01) ==
LOC: WOUND 01:40
DX: E11.622 Type 2 diabetes mellitus with other skin ulcer (principal); L97.815 Non-pressure chronic ulcer of other part of right lower leg with muscle involvement without evidence of necrosis; L97.922 Non-pressure chronic ulcer of unspecified part of left lower leg with fat layer exposed; L97.812 Non-pressure chronic ulcer of other part of right lower leg with fat layer exposed; L89.92 Pressure ulcer of unspecified site, stage 2; E11.40 Type 2 diabetes mellitus with diabetic neuropathy, unspecified; E11.65 Type 2 diabetes mellitus with hyperglycemia; Z79.4 Long term (current) use of insulin; Z86.31 Personal history of diabetic foot ulcer; Z87.891 Personal history of nicotine dependence; Z89.512 Acquired absence of left leg below knee; Z86.13 Personal history of malaria
CPT/HCPCS: 36415; 73630; 82043; 82570; 83036; A6213; A9270

== ENCOUNTER 2024-07-17 21:27 | Emergency (ER) | payer MEDICARE, OTHER ==
[~2024-07-17] VITALS: Ht 172.7 cm; Wt 99.8 kg
[2024-07-17 22:04] LABS: BASOPHILS ABSOLUTE AUTO 0.07 K/mm3 (0.00-0.23); BASOPHILS PERCENT AUTO 1 % (0-2); EOSINOPHILS ABSOLUTE AUTO 0.36 K/mm3 (0.00-0.68); EOSINOPHILS PERCENT AUTO 4 % (0-6); Hemoglobin 10.6 g/dL (13.5-17.5); IMMATURE GRAN ABSOLUTE AUTO 0.03 K/mm3 (0.00-0.10); IMMATURE GRAN PERCENT AUTO 0 % (0-1); LYMPHOCYTES ABSOLUTE AUTO 1.54 K/mm3 (0.84-5.20); LYMPHOCYTES PERCENT AUTO 17 % (21-46); MONOCYTES ABSOLUTE AUTO 0.92 K/mm3 (0.16-1.47); MONOCYTES PERCENT AUTO 10 % (4-13); Mean Corpuscular HGB 29.2 pg (26.0-34.0); Mean Corpuscular HGB Conc 34.2 g/dL (31.5-36.5); Mean Corpuscular Volume 85 fL (80-100); Mean Platelet Volume 9.4 fL (9.1-12.4); NEUTROPHILS ABSOLUTE AUTO 6.26 K/mm3 (1.96-9.15); NEUTROPHILS PERCENT AUTO 68 % (41-73); Platelet Count 294 K/mm3 (150-400); RDW Coefficient Variation 13.5 % (11.7-14.2); RDW Standard Deviation 41.9 fL (35.1-46.3); Red Blood Cell Count 3.63 M/mm3 (4.30-5.90); White Blood Cell Count 9.18 K/mm3 (4.00-11.30)
[2024-07-17 22:30] LABS: Albumin, Blood 3.1 g/dL (3.4-5.0); Albumin/Globulin Ratio 0.8 (0.8-1.8); Bilirubin, Total 0.3 mg/dL (0.1-1.0); Bun/Creatinine Ratio 34.1 (12.0-20.0); Calcium, Blood 9.5 mg/dL (8.5-10.1); Creatinine, Blood 0.82 mg/dL (0.60-1.20); Globulin, Blood 3.9 g/dL (2.2-4.0); Potassium, Blood 4.7 mmol/L (3.5-5.5)
[2024-07-17] MEDS ORDERED: Clindamycin 900mg in D5W 50ML 50 ML IV ONE (23:10)
[2024-07-17 23:30] VITALS: BP 145/86
[2024-07-17] MEDS ORDERED: CLIN300 PO (23:35)
== END 2024-07-18 00:15 | disposition home or self-care (01) ==
LOC: ER 21:27
PROVIDERS: Physician Assistant
DX: E11.622 Type 2 diabetes mellitus with other skin ulcer (principal); L97.319 Non-pressure chronic ulcer of right ankle with unspecified severity; E11.65 Type 2 diabetes mellitus with hyperglycemia; E11.10 Type 2 diabetes mellitus with ketoacidosis without coma; E87.5 Hyperkalemia; Z79.84 Long term (current) use of oral hypoglycemic drugs; Z79.4 Long term (current) use of insulin; Z79.02 Long term (current) use of antithrombotics/antiplatelets; Z88.6 Allergy status to analgesic agent; Z91.040 Latex allergy status
CPT/HCPCS: 80053; 85025; 96365; 99283-25

== ENCOUNTER 2024-07-23 05:15 | Day surgery (SDC) | payer MEDICARE, OTHER ==
[2024-07-23] MEDS ORDERED: Lidocaine HCl 4% Cream 5 GM ONE (13:23)
== END 2024-07-23 23:00 | disposition home or self-care (01) ==
LOC: WOUND 05:15
DX: E11.622 Type 2 diabetes mellitus with other skin ulcer (principal); L97.813 Non-pressure chronic ulcer of other part of right lower leg with necrosis of muscle; S80.212D Abrasion, left knee, subsequent encounter; E11.10 Type 2 diabetes mellitus with ketoacidosis without coma; L97.922 Non-pressure chronic ulcer of unspecified part of left lower leg with fat layer exposed; L97.812 Non-pressure chronic ulcer of other part of right lower leg with fat layer exposed; L89.92 Pressure ulcer of unspecified site, stage 2; E11.65 Type 2 diabetes mellitus with hyperglycemia; X58.XXXD Exposure to other specified factors, subsequent encounter; Z89.512 Acquired absence of left leg below knee; Z86.31 Personal history of diabetic foot ulcer
CPT/HCPCS: A6196; A6213; A9270

== ENCOUNTER 2024-08-04 00:37 | Day surgery (SDC) | payer MEDICARE, OTHER ==
[2024-08-04] MEDS ORDERED: Lidocaine HCl 4% Cream 5 GM ONE (13:19)
== END 2024-08-04 23:14 | disposition home or self-care (01) ==
LOC: WOUND 00:37
DX: E11.622 Type 2 diabetes mellitus with other skin ulcer (principal); L97.813 Non-pressure chronic ulcer of other part of right lower leg with necrosis of muscle; L97.822 Non-pressure chronic ulcer of other part of left lower leg with fat layer exposed; L89.92 Pressure ulcer of unspecified site, stage 2; Z89.512 Acquired absence of left leg below knee; Z86.31 Personal history of diabetic foot ulcer
CPT/HCPCS: A6196; A6213; A9270

== ENCOUNTER 2024-08-11 00:45 | Day surgery (SDC) | payer MEDICARE, OTHER ==
[2024-08-11] MEDS ORDERED: Lidocaine HCl 4% Cream 5 GM ONE (13:36)
== END 2024-08-11 23:00 | disposition home or self-care (01) ==
LOC: WOUND 00:45
DX: E11.622 Type 2 diabetes mellitus with other skin ulcer (principal); L97.813 Non-pressure chronic ulcer of other part of right lower leg with necrosis of muscle; S80.212D Abrasion, left knee, subsequent encounter; L89.92 Pressure ulcer of unspecified site, stage 2; E11.65 Type 2 diabetes mellitus with hyperglycemia; Z89.512 Acquired absence of left leg below knee; Z86.31 Personal history of diabetic foot ulcer; X58.XXXD Exposure to other specified factors, subsequent encounter
CPT/HCPCS: A6213; A9270

== ENCOUNTER 2024-08-18 00:40 | Day surgery (SDC) | payer MEDICARE, OTHER ==
[2024-08-18] MEDS ORDERED: Lidocaine HCl 4% Cream 5 GM ONE (14:21)
== END 2024-08-18 23:00 | disposition home or self-care (01) ==
LOC: WOUND 00:40
DX: E11.622 Type 2 diabetes mellitus with other skin ulcer (principal); L97.813 Non-pressure chronic ulcer of other part of right lower leg with necrosis of muscle; L97.822 Non-pressure chronic ulcer of other part of left lower leg with fat layer exposed; E11.65 Type 2 diabetes mellitus with hyperglycemia; Z89.512 Acquired absence of left leg below knee
CPT/HCPCS: A6213; A9270

== ENCOUNTER 2024-08-31 01:58 | Day surgery (SDC) | payer MEDICARE, OTHER ==
[2024-08-31] MEDS ORDERED: Lidocaine HCl 4% Cream 5 GM ONE (15:23)
[2024-08-31] MEDS ORDERED: Silver Nitr/Potassium Nitrate 1 EA APPL ONE (15:39)
== END 2024-08-31 23:24 | disposition home or self-care (01) ==
LOC: WOUND 01:58
DX: E11.622 Type 2 diabetes mellitus with other skin ulcer (principal); L97.812 Non-pressure chronic ulcer of other part of right lower leg with fat layer exposed; E11.10 Type 2 diabetes mellitus with ketoacidosis without coma; Z86.31 Personal history of diabetic foot ulcer; Z89.512 Acquired absence of left leg below knee
CPT/HCPCS: 82947; A6213; A9270

== ENCOUNTER 2024-09-08 02:59 | Day surgery (SDC) | payer MEDICARE, OTHER | END 2024-09-08 23:03 | disposition home or self-care (01) | LOC: HBO 02:59 | DX: E11.622 Type 2 diabetes mellitus with other skin ulcer (principal); L97.813 Non-pressure chronic ulcer of other part of right lower leg with necrosis of muscle; L97.822 Non-pressure chronic ulcer of other part of left lower leg with fat layer exposed; Z89.512 Acquired absence of left leg below knee; Z86.31 Personal history of diabetic foot ulcer | CPT/HCPCS: 82947; G0463 ==

== ENCOUNTER 2024-09-09 01:52 | Day surgery (SDC) | payer MEDICARE, OTHER | END 2024-09-09 23:00 | disposition home or self-care (01) | LOC: HBO 01:52 | DX: E11.622 Type 2 diabetes mellitus with other skin ulcer (principal); L97.813 Non-pressure chronic ulcer of other part of right lower leg with necrosis of muscle; L97.922 Non-pressure chronic ulcer of unspecified part of left lower leg with fat layer exposed; E11.65 Type 2 diabetes mellitus with hyperglycemia; Z89.512 Acquired absence of left leg below knee; Z86.31 Personal history of diabetic foot ulcer | CPT/HCPCS: 82947; G0277 ==

== ENCOUNTER 2024-09-10 02:30 | Day surgery (SDC) | payer MEDICARE, OTHER | END 2024-09-10 23:00 | disposition home or self-care (01) | LOC: HBO 02:30 | DX: E11.622 Type 2 diabetes mellitus with other skin ulcer (principal); L97.813 Non-pressure chronic ulcer of other part of right lower leg with necrosis of muscle; L97.922 Non-pressure chronic ulcer of unspecified part of left lower leg with fat layer exposed; E11.65 Type 2 diabetes mellitus with hyperglycemia; Z89.512 Acquired absence of left leg below knee; Z86.31 Personal history of diabetic foot ulcer | CPT/HCPCS: 82947; G0277 ==

== ENCOUNTER 2024-09-11 04:04 | Day surgery (SDC) | payer MEDICARE, OTHER | END 2024-09-11 23:00 | disposition home or self-care (01) | LOC: HBO 04:04 | DX: E11.622 Type 2 diabetes mellitus with other skin ulcer (principal); L97.813 Non-pressure chronic ulcer of other part of right lower leg with necrosis of muscle; L97.922 Non-pressure chronic ulcer of unspecified part of left lower leg with fat layer exposed; Z89.512 Acquired absence of left leg below knee | CPT/HCPCS: 82947; G0277 ==

== ENCOUNTER 2024-09-14 00:52 | Day surgery (SDC) | payer MEDICARE, OTHER | END 2024-09-14 23:00 | disposition home or self-care (01) | LOC: HBO 00:52 | DX: E11.622 Type 2 diabetes mellitus with other skin ulcer (principal); L97.813 Non-pressure chronic ulcer of other part of right lower leg with necrosis of muscle; L97.922 Non-pressure chronic ulcer of unspecified part of left lower leg with fat layer exposed; E11.65 Type 2 diabetes mellitus with hyperglycemia; Z89.512 Acquired absence of left leg below knee; Z86.31 Personal history of diabetic foot ulcer | CPT/HCPCS: 82947; G0277 ==

== ENCOUNTER 2024-09-15 02:18 | Day surgery (SDC) | payer MEDICARE, OTHER ==
[2024-09-15] MEDS ORDERED: Lidocaine HCl 4% Cream 5 GM ONE (09:31)
== END 2024-09-15 23:00 | disposition home or self-care (01) ==
LOC: WOUND 02:18
DX: E11.622 Type 2 diabetes mellitus with other skin ulcer (principal); L97.815 Non-pressure chronic ulcer of other part of right lower leg with muscle involvement without evidence of necrosis; T87.89 Other complications of amputation stump; S80.812D Abrasion, left lower leg, subsequent encounter; S81.001D Unspecified open wound, right knee, subsequent encounter; X58.XXXD Exposure to other specified factors, subsequent encounter; Z79.4 Long term (current) use of insulin; Z87.891 Personal history of nicotine dependence; Z89.512 Acquired absence of left leg below knee; Z86.31 Personal history of diabetic foot ulcer
CPT/HCPCS: 82947; A6213; A9270; G0277; G0463

== ENCOUNTER 2024-09-15 02:21 | Day surgery (SDC) | payer MEDICARE, OTHER | END 2024-09-15 23:00 | disposition home or self-care (01) | LOC: HBO 02:21 | DX: E11.622 Type 2 diabetes mellitus with other skin ulcer (principal); L97.813 Non-pressure chronic ulcer of other part of right lower leg with necrosis of muscle; L97.922 Non-pressure chronic ulcer of unspecified part of left lower leg with fat layer exposed; E11.65 Type 2 diabetes mellitus with hyperglycemia; Z89.512 Acquired absence of left leg below knee; Z86.31 Personal history of diabetic foot ulcer | CPT/HCPCS: 82947; G0277 ==

== ENCOUNTER 2024-09-16 01:36 | Day surgery (SDC) | payer MEDICARE, OTHER | END 2024-09-16 23:00 | disposition home or self-care (01) | LOC: HBO 01:36 | DX: E11.622 Type 2 diabetes mellitus with other skin ulcer (principal); L97.813 Non-pressure chronic ulcer of other part of right lower leg with necrosis of muscle; L97.922 Non-pressure chronic ulcer of unspecified part of left lower leg with fat layer exposed; E11.65 Type 2 diabetes mellitus with hyperglycemia; Z89.512 Acquired absence of left leg below knee; Z86.31 Personal history of diabetic foot ulcer | CPT/HCPCS: 82947; G0463 ==

== ENCOUNTER 2024-09-17 00:11 | Day surgery (SDC) | payer MEDICARE, OTHER | END 2024-09-17 23:00 | disposition home or self-care (01) | LOC: HBO 00:11 | DX: E11.622 Type 2 diabetes mellitus with other skin ulcer (principal); L97.813 Non-pressure chronic ulcer of other part of right lower leg with necrosis of muscle; L97.822 Non-pressure chronic ulcer of other part of left lower leg with fat layer exposed; Z89.512 Acquired absence of left leg below knee | CPT/HCPCS: 82947; G0277 ==

== ENCOUNTER 2024-09-18 00:30 | Day surgery (SDC) | payer MEDICARE, OTHER | END 2024-09-18 23:00 | disposition home or self-care (01) | LOC: HBO 00:30 | DX: E11.622 Type 2 diabetes mellitus with other skin ulcer (principal); L97.812 Non-pressure chronic ulcer of other part of right lower leg with fat layer exposed; Z89.512 Acquired absence of left leg below knee; Z86.31 Personal history of diabetic foot ulcer | CPT/HCPCS: 82947; G0277 ==

== ENCOUNTER 2024-09-21 01:12 | Day surgery (SDC) | payer MEDICARE, OTHER | END 2024-09-21 23:00 | disposition home or self-care (01) | LOC: HBO 01:12 | DX: E11.622 Type 2 diabetes mellitus with other skin ulcer (principal); L97.813 Non-pressure chronic ulcer of other part of right lower leg with necrosis of muscle; L97.822 Non-pressure chronic ulcer of other part of left lower leg with fat layer exposed; Z89.512 Acquired absence of left leg below knee; Z86.31 Personal history of diabetic foot ulcer | CPT/HCPCS: 82947; G0277 ==

== ENCOUNTER 2024-09-22 02:30 | Day surgery (SDC) | payer MEDICARE, OTHER | END 2024-09-22 23:00 | LOC: HBO 02:30 | DX: E11.622 Type 2 diabetes mellitus with other skin ulcer (principal); L97.812 Non-pressure chronic ulcer of other part of right lower leg with fat layer exposed; Z89.512 Acquired absence of left leg below knee; Z86.31 Personal history of diabetic foot ulcer | CPT/HCPCS: 82947; G0277 ==

== ENCOUNTER 2024-09-23 02:37 | Day surgery (SDC) | payer MEDICARE, OTHER ==
[2024-09-23] MEDS ORDERED: Lidocaine HCl 4% Cream 5 GM ONE (09:02)
== END 2024-09-23 23:00 | disposition home or self-care (01) ==
LOC: WOUND 02:37
DX: E11.622 Type 2 diabetes mellitus with other skin ulcer (principal); L97.815 Non-pressure chronic ulcer of other part of right lower leg with muscle involvement without evidence of necrosis; S80.812D Abrasion, left lower leg, subsequent encounter; X58.XXXD Exposure to other specified factors, subsequent encounter; N18.30 Chronic kidney disease, stage 3 unspecified; D63.1 Anemia in chronic kidney disease; N25.81 Secondary hyperparathyroidism of renal origin; E55.9 Vitamin D deficiency, unspecified; E78.00 Pure hypercholesterolemia, unspecified; R76.9 Abnormal immunological finding in serum, unspecified; R94.5 Abnormal results of liver function studies; R94.6 Abnormal results of thyroid function studies; Z79.4 Long term (current) use of insulin; Z86.31 Personal history of diabetic foot ulcer; Z87.891 Personal history of nicotine dependence; Z89.512 Acquired absence of left leg below knee
CPT/HCPCS: 81050; 82043; 82570; 84156; A6213; A9270

== ENCOUNTER 2024-09-23 02:56 | Day surgery (SDC) | payer MEDICARE, OTHER | END 2024-09-23 23:00 | disposition home or self-care (01) | LOC: HBO 02:56 | DX: E11.622 Type 2 diabetes mellitus with other skin ulcer (principal); L97.812 Non-pressure chronic ulcer of other part of right lower leg with fat layer exposed; Z89.512 Acquired absence of left leg below knee; Z86.31 Personal history of diabetic foot ulcer | CPT/HCPCS: 82947; G0277 ==

== ENCOUNTER → 2024-09-23 | Outpatient (CLI) | payer MEDICARE, OTHER ==
[2024-09-23 11:03] LABS: Creatinine Urine 42.8 mg/dL (27.00-270.00); Protein, Urine Quantitative 65.9 mg/dL (0.0-11.9)
== END | disposition home or self-care (01) ==
LOC: LAB 08:50 → LAB SHORT 08:50
PROVIDERS: Internal Medicine Nephrology
DX: N18.30 Chronic kidney disease, stage 3 unspecified (principal); D63.1 Anemia in chronic kidney disease; N25.81 Secondary hyperparathyroidism of renal origin; E55.9 Vitamin D deficiency, unspecified; E78.00 Pure hypercholesterolemia, unspecified; R76.9 Abnormal immunological finding in serum, unspecified; R94.5 Abnormal results of liver function studies; R94.6 Abnormal results of thyroid function studies
CPT/HCPCS: 81050; 82043; 82570; 84156

== ENCOUNTER 2024-09-24 04:16 | Day surgery (SDC) | payer MEDICARE, OTHER | END 2024-09-24 23:00 | disposition home or self-care (01) | LOC: HBO 04:16 | DX: E11.622 Type 2 diabetes mellitus with other skin ulcer (principal); L97.813 Non-pressure chronic ulcer of other part of right lower leg with necrosis of muscle; L97.922 Non-pressure chronic ulcer of unspecified part of left lower leg with fat layer exposed; E11.65 Type 2 diabetes mellitus with hyperglycemia; Z89.512 Acquired absence of left leg below knee; Z86.31 Personal history of diabetic foot ulcer | CPT/HCPCS: 82947; G0277 ==

== ENCOUNTER 2024-09-25 03:30 | Day surgery (SDC) | payer MEDICARE, OTHER | END 2024-09-25 23:00 | disposition home or self-care (01) | LOC: HBO 03:30 | DX: E11.622 Type 2 diabetes mellitus with other skin ulcer (principal); L97.813 Non-pressure chronic ulcer of other part of right lower leg with necrosis of muscle; L97.922 Non-pressure chronic ulcer of unspecified part of left lower leg with fat layer exposed; E11.65 Type 2 diabetes mellitus with hyperglycemia; Z89.512 Acquired absence of left leg below knee; Z86.31 Personal history of diabetic foot ulcer | CPT/HCPCS: 82947; G0277 ==

== ENCOUNTER 2024-09-28 01:42 | Day surgery (SDC) | payer MEDICARE, OTHER | END 2024-09-28 23:00 | disposition home or self-care (01) | LOC: HBO 01:42 | DX: E11.622 Type 2 diabetes mellitus with other skin ulcer (principal); L97.813 Non-pressure chronic ulcer of other part of right lower leg with necrosis of muscle; L97.922 Non-pressure chronic ulcer of unspecified part of left lower leg with fat layer exposed; E11.65 Type 2 diabetes mellitus with hyperglycemia; Z89.512 Acquired absence of left leg below knee; Z86.31 Personal history of diabetic foot ulcer | CPT/HCPCS: 82947; G0277 ==

== ENCOUNTER 2024-09-29 04:33 | Day surgery (SDC) | payer MEDICARE, OTHER | END 2024-09-29 22:58 | disposition home or self-care (01) | LOC: HBO 04:33 | DX: E11.622 Type 2 diabetes mellitus with other skin ulcer (principal); L97.813 Non-pressure chronic ulcer of other part of right lower leg with necrosis of muscle; L97.822 Non-pressure chronic ulcer of other part of left lower leg with fat layer exposed; Z89.512 Acquired absence of left leg below knee; Z86.31 Personal history of diabetic foot ulcer | CPT/HCPCS: 82947; G0277 ==

== ENCOUNTER 2024-09-30 02:20 | Day surgery (SDC) | payer MEDICARE, OTHER | END 2024-09-30 23:00 | disposition home or self-care (01) | LOC: HBO 02:20 | DX: E11.622 Type 2 diabetes mellitus with other skin ulcer (principal); L97.813 Non-pressure chronic ulcer of other part of right lower leg with necrosis of muscle; L97.822 Non-pressure chronic ulcer of other part of left lower leg with fat layer exposed; Z89.512 Acquired absence of left leg below knee | CPT/HCPCS: 82947; G0277 ==

== ENCOUNTER 2024-10-01 01:52 | Day surgery (SDC) | payer MEDICARE, OTHER | END 2024-10-01 23:00 | disposition home or self-care (01) | LOC: HBO 01:52 | DX: E11.622 Type 2 diabetes mellitus with other skin ulcer (principal); L97.813 Non-pressure chronic ulcer of other part of right lower leg with necrosis of muscle; L97.822 Non-pressure chronic ulcer of other part of left lower leg with fat layer exposed; Z89.512 Acquired absence of left leg below knee; Z86.31 Personal history of diabetic foot ulcer; E11.65 Type 2 diabetes mellitus with hyperglycemia | CPT/HCPCS: 82947; A6213; A9270; G0277 ==

== ENCOUNTER 2024-10-01 01:56 | Day surgery (SDC) | payer MEDICARE, OTHER ==
[2024-10-01] MEDS ORDERED: Lidocaine HCl 4% Cream 5 GM ONE (09:24)
== END 2024-10-01 23:00 | disposition home or self-care (01) ==
LOC: WOUND 01:56
DX: E11.622 Type 2 diabetes mellitus with other skin ulcer (principal); L97.813 Non-pressure chronic ulcer of other part of right lower leg with necrosis of muscle; L97.822 Non-pressure chronic ulcer of other part of left lower leg with fat layer exposed; Z89.512 Acquired absence of left leg below knee; Z86.31 Personal history of diabetic foot ulcer; E11.65 Type 2 diabetes mellitus with hyperglycemia
CPT/HCPCS: A6213; A9270

== ENCOUNTER 2024-10-02 02:39 | Day surgery (SDC) | payer MEDICARE, OTHER | END 2024-10-02 23:00 | disposition home or self-care (01) | LOC: HBO 02:39 | DX: E11.622 Type 2 diabetes mellitus with other skin ulcer (principal); L97.812 Non-pressure chronic ulcer of other part of right lower leg with fat layer exposed; L97.922 Non-pressure chronic ulcer of unspecified part of left lower leg with fat layer exposed; Z79.02 Long term (current) use of antithrombotics/antiplatelets; Z79.2 Long term (current) use of antibiotics; Z79.4 Long term (current) use of insulin; Z79.82 Long term (current) use of aspirin; Z79.84 Long term (current) use of oral hypoglycemic drugs; Z79.85 Long-term (current) use of injectable non-insulin antidiabetic drugs; Z79.899 Other long term (current) drug therapy; Z89.512 Acquired absence of left leg below knee | CPT/HCPCS: 82947; G0277 ==

== ENCOUNTER 2024-10-05 12:54 | Day surgery (SDC) | payer MEDICARE, OTHER | END 2024-10-05 23:00 | LOC: HBO 12:54 | DX: E11.622 Type 2 diabetes mellitus with other skin ulcer (principal); L97.813 Non-pressure chronic ulcer of other part of right lower leg with necrosis of muscle; L97.922 Non-pressure chronic ulcer of unspecified part of left lower leg with fat layer exposed; E11.65 Type 2 diabetes mellitus with hyperglycemia; Z89.512 Acquired absence of left leg below knee; Z86.31 Personal history of diabetic foot ulcer | CPT/HCPCS: 82947; G0277 ==

== ENCOUNTER 2024-10-06 04:39 | Day surgery (SDC) | payer MEDICARE, OTHER ==
[~2024-10-06 04:39] MED LIST changes: -Lidocaine HCl 4% Cream 5 GM ONE
== END 2024-10-06 23:00 | disposition home or self-care (01) ==
LOC: HBO 04:39
DX: E11.622 Type 2 diabetes mellitus with other skin ulcer (principal); L97.813 Non-pressure chronic ulcer of other part of right lower leg with necrosis of muscle; L97.922 Non-pressure chronic ulcer of unspecified part of left lower leg with fat layer exposed; Z89.512 Acquired absence of left leg below knee; E11.65 Type 2 diabetes mellitus with hyperglycemia; Z86.31 Personal history of diabetic foot ulcer
CPT/HCPCS: 82947; A6213; A9270; G0277

== ENCOUNTER → 2024-10-06 | Day surgery (SDC) | payer MEDICARE, OTHER ==
[~2024-10-06] MED LIST changes: +Lidocaine HCl 4% Cream 5 GM ONE
== END ==
LOC: WOUND 04:36
DX: E11.622 Type 2 diabetes mellitus with other skin ulcer (principal); L97.813 Non-pressure chronic ulcer of other part of right lower leg with necrosis of muscle; L97.922 Non-pressure chronic ulcer of unspecified part of left lower leg with fat layer exposed; E11.65 Type 2 diabetes mellitus with hyperglycemia; Z89.512 Acquired absence of left leg below knee; Z86.31 Personal history of diabetic foot ulcer
CPT/HCPCS: A6213; A9270

== ENCOUNTER 2024-10-08 02:06 | Day surgery (SDC) | payer MEDICARE, OTHER | END 2024-10-08 23:00 | disposition home or self-care (01) | LOC: HBO 02:06 → WOUND 02:06 → HBO 23:00 | DX: E11.622 Type 2 diabetes mellitus with other skin ulcer (principal); L97.813 Non-pressure chronic ulcer of other part of right lower leg with necrosis of muscle; L97.922 Non-pressure chronic ulcer of unspecified part of left lower leg with fat layer exposed; E11.65 Type 2 diabetes mellitus with hyperglycemia; Z86.31 Personal history of diabetic foot ulcer; Z88.8 Allergy status to other drugs, medicaments and biological substances; Z91.040 Latex allergy status; Z89.512 Acquired absence of left leg below knee | CPT/HCPCS: 82947; G0277 ==

== ENCOUNTER 2024-10-09 02:53 | Day surgery (SDC) | payer MEDICARE, OTHER | END 2024-10-09 23:00 | disposition home or self-care (01) | LOC: HBO 02:53 | DX: E11.622 Type 2 diabetes mellitus with other skin ulcer (principal); L97.813 Non-pressure chronic ulcer of other part of right lower leg with necrosis of muscle; L97.922 Non-pressure chronic ulcer of unspecified part of left lower leg with fat layer exposed; Z89.512 Acquired absence of left leg below knee; Z86.31 Personal history of diabetic foot ulcer | CPT/HCPCS: 82947; G0277 ==

== ENCOUNTER 2024-10-12 08:37 | Day surgery (SDC) | payer MEDICARE, OTHER | END 2024-10-12 23:00 | disposition home or self-care (01) | LOC: HBO 08:37 | DX: E11.622 Type 2 diabetes mellitus with other skin ulcer (principal); L97.813 Non-pressure chronic ulcer of other part of right lower leg with necrosis of muscle; L97.922 Non-pressure chronic ulcer of unspecified part of left lower leg with fat layer exposed; Z89.512 Acquired absence of left leg below knee; Z86.31 Personal history of diabetic foot ulcer | CPT/HCPCS: 82947; G0277 ==

== ENCOUNTER 2024-10-13 03:37 | Day surgery (SDC) | payer MEDICARE, OTHER ==
[~2024-10-13 03:37] MED LIST changes: -Lidocaine HCl 4% Cream 5 GM ONE; -Silver Nitr/Potassium Nitrate 1 EA APPL ONE
== END 2024-10-13 23:00 | disposition home or self-care (01) ==
LOC: HBO 03:37
DX: E11.622 Type 2 diabetes mellitus with other skin ulcer (principal); L97.813 Non-pressure chronic ulcer of other part of right lower leg with necrosis of muscle; L97.922 Non-pressure chronic ulcer of unspecified part of left lower leg with fat layer exposed; E11.65 Type 2 diabetes mellitus with hyperglycemia; Z89.512 Acquired absence of left leg below knee; Z86.31 Personal history of diabetic foot ulcer; L97.822 Non-pressure chronic ulcer of other part of left lower leg with fat layer exposed
CPT/HCPCS: 82947; A6213; A9270; G0277

== ENCOUNTER → 2024-10-13 | Day surgery (SDC) | payer MEDICARE, OTHER ==
[~2024-10-13] MED LIST changes: +Lidocaine HCl 4% Cream 5 GM ONE; +Silver Nitr/Potassium Nitrate 1 EA APPL ONE
== END ==
LOC: WOUND 03:34
DX: E11.622 Type 2 diabetes mellitus with other skin ulcer (principal); L97.813 Non-pressure chronic ulcer of other part of right lower leg with necrosis of muscle; L97.822 Non-pressure chronic ulcer of other part of left lower leg with fat layer exposed; E11.65 Type 2 diabetes mellitus with hyperglycemia; Z89.512 Acquired absence of left leg below knee; Z86.31 Personal history of diabetic foot ulcer
CPT/HCPCS: A6213; A9270

== ENCOUNTER 2024-10-14 04:56 | Day surgery (SDC) | payer MEDICARE, OTHER | END 2024-10-14 23:00 | disposition home or self-care (01) | LOC: HBO 04:56 | DX: E11.622 Type 2 diabetes mellitus with other skin ulcer (principal); L97.813 Non-pressure chronic ulcer of other part of right lower leg with necrosis of muscle; L97.922 Non-pressure chronic ulcer of unspecified part of left lower leg with fat layer exposed; Z89.512 Acquired absence of left leg below knee; E11.65 Type 2 diabetes mellitus with hyperglycemia | CPT/HCPCS: 82947; G0277 ==

== ENCOUNTER 2024-10-15 01:37 | Day surgery (SDC) | payer MEDICARE, OTHER | END 2024-10-15 23:00 | disposition home or self-care (01) | LOC: HBO 01:37 | DX: E11.622 Type 2 diabetes mellitus with other skin ulcer (principal); L97.813 Non-pressure chronic ulcer of other part of right lower leg with necrosis of muscle; L97.922 Non-pressure chronic ulcer of unspecified part of left lower leg with fat layer exposed; E11.65 Type 2 diabetes mellitus with hyperglycemia; Z89.512 Acquired absence of left leg below knee; Z86.31 Personal history of diabetic foot ulcer | CPT/HCPCS: 82947; G0277 ==

== ENCOUNTER 2024-10-16 03:18 | Day surgery (SDC) | payer MEDICARE, OTHER | END 2024-10-16 23:00 | disposition home or self-care (01) | LOC: HBO 03:18 | DX: E11.622 Type 2 diabetes mellitus with other skin ulcer (principal); L97.813 Non-pressure chronic ulcer of other part of right lower leg with necrosis of muscle; L97.922 Non-pressure chronic ulcer of unspecified part of left lower leg with fat layer exposed; Z89.512 Acquired absence of left leg below knee | CPT/HCPCS: 82947; G0277 ==

== ENCOUNTER 2024-10-19 05:53 | Day surgery (SDC) | payer MEDICARE, OTHER | END 2024-10-19 23:00 | disposition home or self-care (01) | LOC: HBO 05:53 | DX: E11.622 Type 2 diabetes mellitus with other skin ulcer (principal); L97.813 Non-pressure chronic ulcer of other part of right lower leg with necrosis of muscle; Z89.512 Acquired absence of left leg below knee | CPT/HCPCS: 82947; G0463 ==

== ENCOUNTER 2024-10-20 02:22 | Day surgery (SDC) | payer MEDICARE, OTHER ==
[2024-10-20] MEDS ORDERED: Lidocaine HCl 4% Cream 5 GM ONE (09:01)
== END 2024-10-20 23:42 | disposition home or self-care (01) ==
LOC: WOUND 02:22
DX: E11.622 Type 2 diabetes mellitus with other skin ulcer (principal); L97.815 Non-pressure chronic ulcer of other part of right lower leg with muscle involvement without evidence of necrosis; L97.822 Non-pressure chronic ulcer of other part of left lower leg with fat layer exposed; Z89.512 Acquired absence of left leg below knee
CPT/HCPCS: A9270

== ENCOUNTER 2024-10-20 02:30 | Day surgery (SDC) | payer MEDICARE, OTHER | END 2024-10-20 23:43 | disposition home or self-care (01) | LOC: HBO 02:30 | DX: E11.622 Type 2 diabetes mellitus with other skin ulcer (principal); L97.813 Non-pressure chronic ulcer of other part of right lower leg with necrosis of muscle; L97.922 Non-pressure chronic ulcer of unspecified part of left lower leg with fat layer exposed; E11.65 Type 2 diabetes mellitus with hyperglycemia; L97.815 Non-pressure chronic ulcer of other part of right lower leg with muscle involvement without evidence of necrosis; L97.822 Non-pressure chronic ulcer of other part of left lower leg with fat layer exposed; Z89.512 Acquired absence of left leg below knee | CPT/HCPCS: 82947; A6213; A9270; G0463 ==

== ENCOUNTER 2024-10-21 02:30 | Day surgery (SDC) | payer MEDICARE, OTHER | END 2024-10-21 23:00 | disposition home or self-care (01) | LOC: HBO 02:30 | DX: E11.622 Type 2 diabetes mellitus with other skin ulcer (principal); L97.813 Non-pressure chronic ulcer of other part of right lower leg with necrosis of muscle; L97.922 Non-pressure chronic ulcer of unspecified part of left lower leg with fat layer exposed; E11.65 Type 2 diabetes mellitus with hyperglycemia; Z89.512 Acquired absence of left leg below knee | CPT/HCPCS: 82947; G0277 ==

== ENCOUNTER 2024-10-22 01:12 | Day surgery (SDC) | payer MEDICARE, OTHER | END 2024-10-22 23:00 | disposition home or self-care (01) | LOC: HBO 01:12 | DX: E11.622 Type 2 diabetes mellitus with other skin ulcer (principal); L97.813 Non-pressure chronic ulcer of other part of right lower leg with necrosis of muscle; L97.922 Non-pressure chronic ulcer of unspecified part of left lower leg with fat layer exposed; E11.65 Type 2 diabetes mellitus with hyperglycemia; Z89.512 Acquired absence of left leg below knee; Z86.31 Personal history of diabetic foot ulcer | CPT/HCPCS: 82947; G0277 ==

== ENCOUNTER 2024-10-23 05:17 | Day surgery (SDC) | payer MEDICARE, OTHER | END 2024-10-23 23:00 | disposition home or self-care (01) | LOC: HBO 05:17 | DX: E11.622 Type 2 diabetes mellitus with other skin ulcer (principal); L97.813 Non-pressure chronic ulcer of other part of right lower leg with necrosis of muscle; L97.922 Non-pressure chronic ulcer of unspecified part of left lower leg with fat layer exposed; E11.65 Type 2 diabetes mellitus with hyperglycemia; Z89.512 Acquired absence of left leg below knee; Z86.31 Personal history of diabetic foot ulcer | CPT/HCPCS: 82947; G0277 ==

== ENCOUNTER 2024-10-26 03:33 | Day surgery (SDC) | payer MEDICARE, OTHER | END 2024-10-26 23:24 | disposition home or self-care (01) | LOC: HBO 03:33 | DX: E11.622 Type 2 diabetes mellitus with other skin ulcer (principal); L97.813 Non-pressure chronic ulcer of other part of right lower leg with necrosis of muscle; L97.922 Non-pressure chronic ulcer of unspecified part of left lower leg with fat layer exposed; Z89.512 Acquired absence of left leg below knee; Z86.31 Personal history of diabetic foot ulcer | CPT/HCPCS: 82947; G0277 ==

== ENCOUNTER 2024-10-27 02:11 | Day surgery (SDC) | payer MEDICARE, OTHER | END 2024-10-27 23:45 | disposition home or self-care (01) | LOC: HBO 02:11 | DX: E11.622 Type 2 diabetes mellitus with other skin ulcer (principal); L97.813 Non-pressure chronic ulcer of other part of right lower leg with necrosis of muscle; L97.922 Non-pressure chronic ulcer of unspecified part of left lower leg with fat layer exposed; E11.65 Type 2 diabetes mellitus with hyperglycemia; Z89.512 Acquired absence of left leg below knee; Z86.31 Personal history of diabetic foot ulcer | CPT/HCPCS: 82947; G0277 ==

== ENCOUNTER 2024-10-28 03:10 | Day surgery (SDC) | payer MEDICARE, OTHER | END 2024-10-28 23:00 | disposition home or self-care (01) | LOC: HBO 03:10 | DX: E11.622 Type 2 diabetes mellitus with other skin ulcer (principal); L97.813 Non-pressure chronic ulcer of other part of right lower leg with necrosis of muscle; L97.922 Non-pressure chronic ulcer of unspecified part of left lower leg with fat layer exposed; E11.65 Type 2 diabetes mellitus with hyperglycemia; Z89.512 Acquired absence of left leg below knee | CPT/HCPCS: 82947; G0277 ==

== ENCOUNTER 2024-10-29 02:13 | Day surgery (SDC) | payer MEDICARE, OTHER | END 2024-10-29 23:00 | disposition home or self-care (01) | LOC: HBO 02:13 | DX: E11.622 Type 2 diabetes mellitus with other skin ulcer (principal); L97.813 Non-pressure chronic ulcer of other part of right lower leg with necrosis of muscle; L97.922 Non-pressure chronic ulcer of unspecified part of left lower leg with fat layer exposed; Z89.512 Acquired absence of left leg below knee | CPT/HCPCS: 82947; G0277 ==

== ENCOUNTER 2024-10-30 04:24 | Day surgery (SDC) | payer MEDICARE, OTHER | END 2024-10-30 23:00 | disposition home or self-care (01) | LOC: HBO 04:24 | DX: E11.622 Type 2 diabetes mellitus with other skin ulcer (principal); L97.813 Non-pressure chronic ulcer of other part of right lower leg with necrosis of muscle; L97.922 Non-pressure chronic ulcer of unspecified part of left lower leg with fat layer exposed; E11.65 Type 2 diabetes mellitus with hyperglycemia; Z89.512 Acquired absence of left leg below knee; Z86.31 Personal history of diabetic foot ulcer | CPT/HCPCS: 82947; G0277 ==

== ENCOUNTER 2024-11-03 00:52 | Day surgery (SDC) | payer MEDICARE, OTHER ==
[2024-11-03] MEDS ORDERED: Lidocaine HCl 4% Cream 5 GM ONE (09:08)
== END 2024-11-03 23:00 | disposition home or self-care (01) ==
LOC: WOUND 00:52
DX: E11.622 Type 2 diabetes mellitus with other skin ulcer (principal); L97.813 Non-pressure chronic ulcer of other part of right lower leg with necrosis of muscle; L97.922 Non-pressure chronic ulcer of unspecified part of left lower leg with fat layer exposed; Z89.512 Acquired absence of left leg below knee; Z86.31 Personal history of diabetic foot ulcer; E11.65 Type 2 diabetes mellitus with hyperglycemia; E11.621 Type 2 diabetes mellitus with foot ulcer
CPT/HCPCS: 82947; A6213; A9270; G0277; G0463

== ENCOUNTER 2024-11-03 00:58 | Day surgery (SDC) | payer MEDICARE, OTHER | END 2024-11-03 23:00 | disposition home or self-care (01) | LOC: HBO 00:58 | DX: E11.622 Type 2 diabetes mellitus with other skin ulcer (principal); L97.813 Non-pressure chronic ulcer of other part of right lower leg with necrosis of muscle; L97.922 Non-pressure chronic ulcer of unspecified part of left lower leg with fat layer exposed; E11.65 Type 2 diabetes mellitus with hyperglycemia; Z89.512 Acquired absence of left leg below knee | CPT/HCPCS: 82947; G0277 ==

== ENCOUNTER 2024-11-04 05:46 | Day surgery (SDC) | payer MEDICARE, OTHER | END 2024-11-04 23:00 | LOC: HBO 05:46 | DX: E11.622 Type 2 diabetes mellitus with other skin ulcer (principal); L97.813 Non-pressure chronic ulcer of other part of right lower leg with necrosis of muscle; L97.922 Non-pressure chronic ulcer of unspecified part of left lower leg with fat layer exposed; Z89.512 Acquired absence of left leg below knee; Z86.31 Personal history of diabetic foot ulcer | CPT/HCPCS: 82947; G0277 ==

== ENCOUNTER 2024-11-05 01:19 | Day surgery (SDC) | payer MEDICARE, OTHER | END 2024-11-05 23:00 | disposition home or self-care (01) | LOC: HBO 01:19 | DX: E11.622 Type 2 diabetes mellitus with other skin ulcer (principal); L97.813 Non-pressure chronic ulcer of other part of right lower leg with necrosis of muscle; L97.922 Non-pressure chronic ulcer of unspecified part of left lower leg with fat layer exposed; E11.65 Type 2 diabetes mellitus with hyperglycemia; Z89.512 Acquired absence of left leg below knee | CPT/HCPCS: 82947; G0277 ==

== ENCOUNTER 2024-11-10 05:41 | Day surgery (SDC) | payer MEDICARE, OTHER | END 2024-11-10 23:00 | disposition home or self-care (01) | LOC: HBO 05:41 | DX: E11.622 Type 2 diabetes mellitus with other skin ulcer (principal); L97.812 Non-pressure chronic ulcer of other part of right lower leg with fat layer exposed; L97.922 Non-pressure chronic ulcer of unspecified part of left lower leg with fat layer exposed; E11.65 Type 2 diabetes mellitus with hyperglycemia; Z89.512 Acquired absence of left leg below knee | CPT/HCPCS: 82947; G0277 ==

== ENCOUNTER 2024-11-11 01:24 | Day surgery (SDC) | payer MEDICARE, OTHER | END 2024-11-11 23:22 | disposition home or self-care (01) | LOC: HBO 01:24 | DX: E11.622 Type 2 diabetes mellitus with other skin ulcer (principal); L97.812 Non-pressure chronic ulcer of other part of right lower leg with fat layer exposed; E11.65 Type 2 diabetes mellitus with hyperglycemia; Z89.512 Acquired absence of left leg below knee | CPT/HCPCS: 82947; G0277 ==

== ENCOUNTER 2024-11-12 01:50 | Day surgery (SDC) | payer MEDICARE, OTHER | END 2024-11-12 23:00 | disposition home or self-care (01) | LOC: HBO 01:50 | DX: E11.622 Type 2 diabetes mellitus with other skin ulcer (principal); L97.813 Non-pressure chronic ulcer of other part of right lower leg with necrosis of muscle; L97.922 Non-pressure chronic ulcer of unspecified part of left lower leg with fat layer exposed; E11.65 Type 2 diabetes mellitus with hyperglycemia; Z89.512 Acquired absence of left leg below knee; Z86.31 Personal history of diabetic foot ulcer | CPT/HCPCS: 82947; G0277 ==

== ENCOUNTER 2024-11-13 08:00 | Day surgery (SDC) | payer MEDICARE, OTHER | END 2024-11-18 23:58 | disposition home or self-care (01) | LOC: HBO 08:00 | DX: E11.622 Type 2 diabetes mellitus with other skin ulcer (principal); L97.813 Non-pressure chronic ulcer of other part of right lower leg with necrosis of muscle; L97.922 Non-pressure chronic ulcer of unspecified part of left lower leg with fat layer exposed; E11.65 Type 2 diabetes mellitus with hyperglycemia; Z89.512 Acquired absence of left leg below knee; Z86.31 Personal history of diabetic foot ulcer | CPT/HCPCS: 82947; G0277 ==

== ENCOUNTER 2024-11-13 08:00 | Day surgery (SDC) | payer MEDICARE, OTHER | END 2024-11-18 23:00 | disposition home or self-care (01) | LOC: WOUND 08:00 | DX: E11.622 Type 2 diabetes mellitus with other skin ulcer (principal); L97.813 Non-pressure chronic ulcer of other part of right lower leg with necrosis of muscle; L97.822 Non-pressure chronic ulcer of other part of left lower leg with fat layer exposed; E11.65 Type 2 diabetes mellitus with hyperglycemia; Z89.512 Acquired absence of left leg below knee; Z86.31 Personal history of diabetic foot ulcer | CPT/HCPCS: 82947; A6213; G0277; G0463 ==

== ENCOUNTER 2024-11-16 03:29 | Day surgery (SDC) | payer MEDICARE, OTHER | END 2024-11-16 23:00 | disposition home or self-care (01) | LOC: HBO 03:29 | DX: E11.622 Type 2 diabetes mellitus with other skin ulcer (principal); L97.812 Non-pressure chronic ulcer of other part of right lower leg with fat layer exposed; E11.65 Type 2 diabetes mellitus with hyperglycemia; Z86.31 Personal history of diabetic foot ulcer; Z89.512 Acquired absence of left leg below knee | CPT/HCPCS: 82947; G0277 ==

== ENCOUNTER 2024-11-17 03:29 | Day surgery (SDC) | payer MEDICARE, OTHER | END 2024-11-17 23:07 | disposition home or self-care (01) | LOC: HBO 03:29 | DX: E11.622 Type 2 diabetes mellitus with other skin ulcer (principal); L97.812 Non-pressure chronic ulcer of other part of right lower leg with fat layer exposed; E11.65 Type 2 diabetes mellitus with hyperglycemia; Z89.512 Acquired absence of left leg below knee; L97.813 Non-pressure chronic ulcer of other part of right lower leg with necrosis of muscle; L97.822 Non-pressure chronic ulcer of other part of left lower leg with fat layer exposed; Z86.31 Personal history of diabetic foot ulcer | CPT/HCPCS: 82947; A6213; A9270; G0277 ==

== ENCOUNTER 2024-11-19 04:08 | Day surgery (SDC) | payer MEDICARE, OTHER | END 2024-11-19 23:51 | disposition home or self-care (01) | LOC: HBO 04:08 | DX: E11.622 Type 2 diabetes mellitus with other skin ulcer (principal); L97.813 Non-pressure chronic ulcer of other part of right lower leg with necrosis of muscle; L97.922 Non-pressure chronic ulcer of unspecified part of left lower leg with fat layer exposed; Z89.512 Acquired absence of left leg below knee; Z86.31 Personal history of diabetic foot ulcer | CPT/HCPCS: 82947; G0277 ==

== ENCOUNTER 2024-11-23 03:22 | Day surgery (SDC) | payer MEDICARE, OTHER | END 2024-11-23 23:57 | disposition home or self-care (01) | LOC: HBO 03:22 | DX: E11.622 Type 2 diabetes mellitus with other skin ulcer (principal); L97.813 Non-pressure chronic ulcer of other part of right lower leg with necrosis of muscle; E11.65 Type 2 diabetes mellitus with hyperglycemia; Z89.512 Acquired absence of left leg below knee | CPT/HCPCS: 82947; G0277 ==

== ENCOUNTER 2024-11-25 03:09 | Day surgery (SDC) | payer MEDICARE, OTHER | END 2024-11-25 23:00 | disposition home or self-care (01) | LOC: HBO 03:09 → WOUND 03:09 → HBO 23:00 | DX: E11.622 Type 2 diabetes mellitus with other skin ulcer (principal); L97.813 Non-pressure chronic ulcer of other part of right lower leg with necrosis of muscle; L97.922 Non-pressure chronic ulcer of unspecified part of left lower leg with fat layer exposed; Z89.512 Acquired absence of left leg below knee | CPT/HCPCS: 82947 ==

== ENCOUNTER 2024-11-27 23:00 | Day surgery (SDC) | payer MEDICARE, OTHER | END 2024-11-27 23:01 | LOC: HBO 23:00 | DX: E11.622 Type 2 diabetes mellitus with other skin ulcer (principal); L97.813 Non-pressure chronic ulcer of other part of right lower leg with necrosis of muscle; L97.922 Non-pressure chronic ulcer of unspecified part of left lower leg with fat layer exposed; E11.65 Type 2 diabetes mellitus with hyperglycemia; Z89.512 Acquired absence of left leg below knee; Z86.31 Personal history of diabetic foot ulcer | CPT/HCPCS: 82947; G0277 ==

== ENCOUNTER 2024-12-03 03:21 | Day surgery (SDC) | payer MEDICARE, OTHER | END 2024-12-03 23:00 | disposition home or self-care (01) | LOC: HBO 03:21 | DX: E11.622 Type 2 diabetes mellitus with other skin ulcer (principal); L97.813 Non-pressure chronic ulcer of other part of right lower leg with necrosis of muscle; L97.922 Non-pressure chronic ulcer of unspecified part of left lower leg with fat layer exposed; E11.65 Type 2 diabetes mellitus with hyperglycemia; Z89.512 Acquired absence of left leg below knee | CPT/HCPCS: 82947; G0277 ==

== ENCOUNTER 2024-12-04 00:24 | Day surgery (SDC) | payer MEDICARE, OTHER | END 2024-12-04 23:00 | disposition home or self-care (01) | LOC: HBO 00:24 | DX: E11.622 Type 2 diabetes mellitus with other skin ulcer (principal); L97.812 Non-pressure chronic ulcer of other part of right lower leg with fat layer exposed; L97.829 Non-pressure chronic ulcer of other part of left lower leg with unspecified severity; E11.65 Type 2 diabetes mellitus with hyperglycemia; Z88.8 Allergy status to other drugs, medicaments and biological substances; Z91.040 Latex allergy status; Z89.512 Acquired absence of left leg below knee | CPT/HCPCS: 82947; G0277 ==

== ENCOUNTER 2024-12-07 02:35 | Day surgery (SDC) | payer MEDICARE, OTHER | END 2024-12-07 23:00 | disposition home or self-care (01) | LOC: HBO 02:35 | DX: E11.622 Type 2 diabetes mellitus with other skin ulcer (principal); L97.812 Non-pressure chronic ulcer of other part of right lower leg with fat layer exposed; E11.65 Type 2 diabetes mellitus with hyperglycemia; Z89.512 Acquired absence of left leg below knee; Z88.8 Allergy status to other drugs, medicaments and biological substances; Z91.040 Latex allergy status | CPT/HCPCS: 82947; G0277 ==

== ENCOUNTER 2024-12-08 00:28 | Day surgery (SDC) | payer MEDICARE, OTHER ==
[2024-12-08] MEDS ORDERED: Lidocaine HCl 4% Cream 5 GM ONE (09:16)
== END 2024-12-08 23:00 | disposition home or self-care (01) ==
LOC: WOUND 00:28
DX: E11.622 Type 2 diabetes mellitus with other skin ulcer (principal); L97.815 Non-pressure chronic ulcer of other part of right lower leg with muscle involvement without evidence of necrosis; E11.65 Type 2 diabetes mellitus with hyperglycemia; S71.112A Laceration without foreign body, left thigh, initial encounter; M25.512 Pain in left shoulder; E11.9 Type 2 diabetes mellitus without complications; I10 Essential (primary) hypertension; S81.812A Laceration without foreign body, left lower leg, initial encounter; Z89.612 Acquired absence of left leg above knee; X58.XXXA Exposure to other specified factors, initial encounter; Z88.6 Allergy status to analgesic agent; Z91.040 Latex allergy status; Z79.85 Long-term (current) use of injectable non-insulin antidiabetic drugs; Z79.4 Long term (current) use of insulin; Z79.84 Long term (current) use of oral hypoglycemic drugs; Z79.82 Long term (current) use of aspirin; Z79.02 Long term (current) use of antithrombotics/antiplatelets; Z79.899 Other long term (current) drug therapy; Z59.89 Other problems related to housing and economic circumstances
CPT/HCPCS: 73030; 99283-25; A6213; A9270

== ENCOUNTER 2024-12-08 10:14 | Emergency (ER) | payer MEDICARE, OTHER ==
[~2024-12-08] VITALS: Ht 172.7 cm; Wt 108.9 kg
[2024-12-08 11:24] VITALS: BP 120/96
[2024-12-08] MEDS ORDERED: Acetaminophen 325 MG TABLET PO ONE (11:30)
== END 2024-12-08 11:58 | disposition home or self-care (01) ==
LOC: ER 10:14
DX: M25.512 Pain in left shoulder (principal); E11.9 Type 2 diabetes mellitus without complications; I10 Essential (primary) hypertension; Z88.6 Allergy status to analgesic agent; Z91.040 Latex allergy status; Z79.85 Long-term (current) use of injectable non-insulin antidiabetic drugs; Z79.4 Long term (current) use of insulin; Z79.84 Long term (current) use of oral hypoglycemic drugs; Z79.82 Long term (current) use of aspirin; Z79.02 Long term (current) use of antithrombotics/antiplatelets; Z79.899 Other long term (current) drug therapy; Z59.89 Other problems related to housing and economic circumstances
CPT/HCPCS: 73030; 99283-25; A9270

== ENCOUNTER 2024-12-09 03:32 | Day surgery (SDC) | payer MEDICARE, OTHER | END 2024-12-09 23:00 | disposition home or self-care (01) | LOC: HBO 03:32 | DX: E11.622 Type 2 diabetes mellitus with other skin ulcer (principal); L97.812 Non-pressure chronic ulcer of other part of right lower leg with fat layer exposed; L97.122 Non-pressure chronic ulcer of left thigh with fat layer exposed; E11.65 Type 2 diabetes mellitus with hyperglycemia; Z89.612 Acquired absence of left leg above knee | CPT/HCPCS: 82947; G0277 ==

== ENCOUNTER 2024-12-10 02:45 | Day surgery (SDC) | payer MEDICARE, OTHER | END 2024-12-10 23:00 | disposition home or self-care (01) | LOC: HBO 02:45 | DX: E11.622 Type 2 diabetes mellitus with other skin ulcer (principal); L97.813 Non-pressure chronic ulcer of other part of right lower leg with necrosis of muscle; E11.65 Type 2 diabetes mellitus with hyperglycemia; Z89.512 Acquired absence of left leg below knee | CPT/HCPCS: 82947; G0277 ==

== ENCOUNTER 2024-12-11 03:13 | Day surgery (SDC) | payer MEDICARE, OTHER | END 2024-12-11 23:00 | disposition home or self-care (01) | LOC: HBO 03:13 | DX: E11.622 Type 2 diabetes mellitus with other skin ulcer (principal); L97.812 Non-pressure chronic ulcer of other part of right lower leg with fat layer exposed; E11.65 Type 2 diabetes mellitus with hyperglycemia; Z89.512 Acquired absence of left leg below knee | CPT/HCPCS: 82947; G0277 ==

== ENCOUNTER 2024-12-14 08:00 | Day surgery (SDC) | payer MEDICARE, OTHER | END 2024-12-14 23:00 | disposition home or self-care (01) | LOC: HBO 08:00 | DX: E11.622 Type 2 diabetes mellitus with other skin ulcer (principal); L97.813 Non-pressure chronic ulcer of other part of right lower leg with necrosis of muscle; L97.922 Non-pressure chronic ulcer of unspecified part of left lower leg with fat layer exposed; E11.65 Type 2 diabetes mellitus with hyperglycemia; Z89.512 Acquired absence of left leg below knee; Z86.31 Personal history of diabetic foot ulcer | CPT/HCPCS: 82947; G0277 ==

== ENCOUNTER 2024-12-15 02:23 | Day surgery (SDC) | payer MEDICARE, OTHER ==
[2024-12-15] MEDS ORDERED: Lidocaine HCl 4% Cream 5 GM ONE (09:15)
== END 2024-12-15 23:00 | disposition home or self-care (01) ==
LOC: WOUND 02:23
DX: E11.622 Type 2 diabetes mellitus with other skin ulcer (principal); L97.813 Non-pressure chronic ulcer of other part of right lower leg with necrosis of muscle; L97.822 Non-pressure chronic ulcer of other part of left lower leg with fat layer exposed; E11.65 Type 2 diabetes mellitus with hyperglycemia; Z89.512 Acquired absence of left leg below knee; Z86.31 Personal history of diabetic foot ulcer
CPT/HCPCS: A6213; A9270; G0463

== ENCOUNTER 2024-12-15 02:27 | Day surgery (SDC) | payer MEDICARE, OTHER | END 2024-12-15 23:00 | disposition home or self-care (01) | LOC: HBO 02:27 | DX: E11.622 Type 2 diabetes mellitus with other skin ulcer (principal); L97.212 Non-pressure chronic ulcer of right calf with fat layer exposed; L97.922 Non-pressure chronic ulcer of unspecified part of left lower leg with fat layer exposed; E11.65 Type 2 diabetes mellitus with hyperglycemia; Z89.512 Acquired absence of left leg below knee; Z86.31 Personal history of diabetic foot ulcer; L97.813 Non-pressure chronic ulcer of other part of right lower leg with necrosis of muscle; L97.822 Non-pressure chronic ulcer of other part of left lower leg with fat layer exposed | CPT/HCPCS: 82947; A6213; A9270; G0277; G0463 ==

== ENCOUNTER 2024-12-16 02:55 | Day surgery (SDC) | payer MEDICARE, OTHER | END 2024-12-16 23:00 | disposition home or self-care (01) | LOC: HBO 02:55 | DX: E11.622 Type 2 diabetes mellitus with other skin ulcer (principal); L97.813 Non-pressure chronic ulcer of other part of right lower leg with necrosis of muscle; L97.922 Non-pressure chronic ulcer of unspecified part of left lower leg with fat layer exposed; E11.65 Type 2 diabetes mellitus with hyperglycemia; Z89.512 Acquired absence of left leg below knee; Z86.31 Personal history of diabetic foot ulcer | CPT/HCPCS: 82947; G0277 ==

== ENCOUNTER 2024-12-21 04:23 | Day surgery (SDC) | payer MEDICARE, OTHER | END 2024-12-21 23:00 | disposition home or self-care (01) | LOC: HBO 04:23 | DX: E11.622 Type 2 diabetes mellitus with other skin ulcer (principal); L97.812 Non-pressure chronic ulcer of other part of right lower leg with fat layer exposed; E11.65 Type 2 diabetes mellitus with hyperglycemia; Z89.512 Acquired absence of left leg below knee | CPT/HCPCS: 82947; G0277 ==

== ENCOUNTER 2024-12-23 01:50 | Day surgery (SDC) | payer MEDICARE, OTHER | END 2024-12-23 23:00 | disposition home or self-care (01) | LOC: HBO | DX: E11.622 Type 2 diabetes mellitus with other skin ulcer (principal); L97.812 Non-pressure chronic ulcer of other part of right lower leg with fat layer exposed; L97.822 Non-pressure chronic ulcer of other part of left lower leg with fat layer exposed; E11.65 Type 2 diabetes mellitus with hyperglycemia; Z89.512 Acquired absence of left leg below knee | CPT/HCPCS: 82947; G0277 ==

== ENCOUNTER 2024-12-24 01:26 | Day surgery (SDC) | payer MEDICARE, OTHER | END 2024-12-24 23:00 | disposition home or self-care (01) | LOC: HBO 01:26 | DX: E11.622 Type 2 diabetes mellitus with other skin ulcer (principal); L97.813 Non-pressure chronic ulcer of other part of right lower leg with necrosis of muscle; L97.922 Non-pressure chronic ulcer of unspecified part of left lower leg with fat layer exposed; E11.65 Type 2 diabetes mellitus with hyperglycemia; Z89.512 Acquired absence of left leg below knee; Z86.31 Personal history of diabetic foot ulcer | CPT/HCPCS: 82947; G0277 ==

== ENCOUNTER 2024-12-25 01:36 | Day surgery (SDC) | payer MEDICARE, OTHER | END 2024-12-25 23:00 | disposition home or self-care (01) | LOC: WOUND 01:36 | DX: E11.622 Type 2 diabetes mellitus with other skin ulcer (principal); L97.813 Non-pressure chronic ulcer of other part of right lower leg with necrosis of muscle; L97.822 Non-pressure chronic ulcer of other part of left lower leg with fat layer exposed; E11.65 Type 2 diabetes mellitus with hyperglycemia; Z89.412 Acquired absence of left great toe; Z86.31 Personal history of diabetic foot ulcer; Z87.891 Personal history of nicotine dependence; S81.812A Laceration without foreign body, left lower leg, initial encounter | CPT/HCPCS: A6213 ==

== ENCOUNTER 2024-12-25 01:38 | Day surgery (SDC) | payer MEDICARE, OTHER | END 2024-12-25 23:00 | disposition home or self-care (01) | LOC: HBO 01:38 | DX: E11.622 Type 2 diabetes mellitus with other skin ulcer (principal); L97.813 Non-pressure chronic ulcer of other part of right lower leg with necrosis of muscle; L97.922 Non-pressure chronic ulcer of unspecified part of left lower leg with fat layer exposed; E11.65 Type 2 diabetes mellitus with hyperglycemia; Z86.31 Personal history of diabetic foot ulcer; Z89.512 Acquired absence of left leg below knee; N18.30 Chronic kidney disease, stage 3 unspecified; D63.1 Anemia in chronic kidney disease; S81.812A Laceration without foreign body, left lower leg, initial encounter; L97.822 Non-pressure chronic ulcer of other part of left lower leg with fat layer exposed; Z89.412 Acquired absence of left great toe; Z87.891 Personal history of nicotine dependence | CPT/HCPCS: 36415; 80069; 82947; 85018; A6213; G0277 ==

== ENCOUNTER 2024-12-29 00:44 | Day surgery (SDC) | payer MEDICARE, OTHER | END 2024-12-29 23:00 | disposition home or self-care (01) | LOC: HBO 00:44 | DX: E11.622 Type 2 diabetes mellitus with other skin ulcer (principal); L97.812 Non-pressure chronic ulcer of other part of right lower leg with fat layer exposed; E11.65 Type 2 diabetes mellitus with hyperglycemia; Z89.512 Acquired absence of left leg below knee | CPT/HCPCS: 82947; G0277 ==

== ENCOUNTER 2024-12-30 03:31 | Day surgery (SDC) | payer MEDICARE, OTHER | END 2024-12-30 23:00 | disposition home or self-care (01) | LOC: HBO 03:31 | DX: E11.622 Type 2 diabetes mellitus with other skin ulcer (principal); L97.812 Non-pressure chronic ulcer of other part of right lower leg with fat layer exposed; E11.65 Type 2 diabetes mellitus with hyperglycemia; Z89.512 Acquired absence of left leg below knee | CPT/HCPCS: 82947; G0277 ==

== ENCOUNTER 2024-12-31 02:12 | Day surgery (SDC) | payer MEDICARE, OTHER | END 2024-12-31 23:00 | LOC: HBO 02:12 | DX: E11.622 Type 2 diabetes mellitus with other skin ulcer (principal); L97.813 Non-pressure chronic ulcer of other part of right lower leg with necrosis of muscle; E11.65 Type 2 diabetes mellitus with hyperglycemia; Z89.512 Acquired absence of left leg below knee | CPT/HCPCS: 82947; G0277 ==

== ENCOUNTER 2025-01-01 05:54 | Day surgery (SDC) | payer MEDICARE, OTHER | END 2025-01-01 23:00 | disposition home or self-care (01) | LOC: HBO 05:54 | DX: E11.622 Type 2 diabetes mellitus with other skin ulcer (principal); L97.812 Non-pressure chronic ulcer of other part of right lower leg with fat layer exposed; E11.65 Type 2 diabetes mellitus with hyperglycemia; Z89.512 Acquired absence of left leg below knee | CPT/HCPCS: 82947; G0277 ==

== ENCOUNTER 2025-01-04 00:58 | Day surgery (SDC) | payer MEDICARE, OTHER | END 2025-01-04 23:00 | disposition home or self-care (01) | LOC: HBO 00:58 | DX: E11.622 Type 2 diabetes mellitus with other skin ulcer (principal); L97.813 Non-pressure chronic ulcer of other part of right lower leg with necrosis of muscle; L97.922 Non-pressure chronic ulcer of unspecified part of left lower leg with fat layer exposed; E11.65 Type 2 diabetes mellitus with hyperglycemia; Z89.512 Acquired absence of left leg below knee; Z86.31 Personal history of diabetic foot ulcer | CPT/HCPCS: 82947; G0277 ==

== ENCOUNTER 2025-01-05 00:38 | Day surgery (SDC) | payer MEDICARE, OTHER ==
[2025-01-05] MEDS ORDERED: Lidocaine HCl 4% Cream 5 GM ONE (09:20)
== END 2025-01-05 23:22 | disposition home or self-care (01) ==
LOC: WOUND 00:38
DX: E11.622 Type 2 diabetes mellitus with other skin ulcer (principal); L97.815 Non-pressure chronic ulcer of other part of right lower leg with muscle involvement without evidence of necrosis; S71.112A Laceration without foreign body, left thigh, initial encounter; E11.65 Type 2 diabetes mellitus with hyperglycemia; Z88.8 Allergy status to other drugs, medicaments and biological substances; Z91.040 Latex allergy status; Z89.512 Acquired absence of left leg below knee; X58.XXXA Exposure to other specified factors, initial encounter
CPT/HCPCS: A9270

== ENCOUNTER 2025-01-05 00:43 | Day surgery (SDC) | payer MEDICARE, OTHER | END 2025-01-05 23:23 | disposition home or self-care (01) | LOC: HBO 00:43 | DX: E11.622 Type 2 diabetes mellitus with other skin ulcer (principal); L97.812 Non-pressure chronic ulcer of other part of right lower leg with fat layer exposed; E11.65 Type 2 diabetes mellitus with hyperglycemia; L97.815 Non-pressure chronic ulcer of other part of right lower leg with muscle involvement without evidence of necrosis; S71.112A Laceration without foreign body, left thigh, initial encounter; X58.XXXA Exposure to other specified factors, initial encounter; Z88.8 Allergy status to other drugs, medicaments and biological substances; Z91.040 Latex allergy status; Z89.512 Acquired absence of left leg below knee | CPT/HCPCS: 82947; A9270; G0277 ==

== ENCOUNTER 2025-01-06 03:12 | Day surgery (SDC) | payer MEDICARE, OTHER | END 2025-01-06 23:00 | disposition home or self-care (01) | LOC: HBO 03:12 | DX: E11.622 Type 2 diabetes mellitus with other skin ulcer (principal); L97.812 Non-pressure chronic ulcer of other part of right lower leg with fat layer exposed; E11.65 Type 2 diabetes mellitus with hyperglycemia; Z88.8 Allergy status to other drugs, medicaments and biological substances; Z91.040 Latex allergy status; Z89.512 Acquired absence of left leg below knee | CPT/HCPCS: 82947; G0277 ==

== ENCOUNTER 2025-01-07 03:16 | Day surgery (SDC) | payer MEDICARE, OTHER | END 2025-01-07 23:00 | disposition home or self-care (01) | LOC: HBO 03:16 | DX: E11.622 Type 2 diabetes mellitus with other skin ulcer (principal); L97.812 Non-pressure chronic ulcer of other part of right lower leg with fat layer exposed; E11.65 Type 2 diabetes mellitus with hyperglycemia; Z88.8 Allergy status to other drugs, medicaments and biological substances; Z91.040 Latex allergy status; Z89.512 Acquired absence of left leg below knee | CPT/HCPCS: 82947; G0277 ==

== ENCOUNTER 2025-01-08 03:08 | Day surgery (SDC) | payer MEDICARE, OTHER | END 2025-01-08 23:00 | disposition home or self-care (01) | LOC: HBO 03:08 | DX: E11.622 Type 2 diabetes mellitus with other skin ulcer (principal); L97.812 Non-pressure chronic ulcer of other part of right lower leg with fat layer exposed; E11.65 Type 2 diabetes mellitus with hyperglycemia; Z89.512 Acquired absence of left leg below knee; Z88.8 Allergy status to other drugs, medicaments and biological substances; Z91.040 Latex allergy status | CPT/HCPCS: 82947; G0277 ==

== ENCOUNTER 2025-01-12 01:15 | Day surgery (SDC) | payer MEDICARE, OTHER | END 2025-01-12 23:00 | disposition home or self-care (01) | LOC: HBO 01:15 | DX: E11.622 Type 2 diabetes mellitus with other skin ulcer (principal); L97.812 Non-pressure chronic ulcer of other part of right lower leg with fat layer exposed; E11.65 Type 2 diabetes mellitus with hyperglycemia; Z89.512 Acquired absence of left leg below knee | CPT/HCPCS: 82947; G0277 ==

== ENCOUNTER 2025-01-12 08:00 | Day surgery (SDC) | payer MEDICARE, OTHER ==
[2025-01-12] MEDS ORDERED: Lidocaine HCl 4% Cream 5 GM ONE (09:20)
== END 2025-01-12 23:00 | disposition home or self-care (01) ==
LOC: WOUND 08:00 → EDSTATUS 14:12 → WOUND 23:00
DX: E11.622 Type 2 diabetes mellitus with other skin ulcer (principal); L97.815 Non-pressure chronic ulcer of other part of right lower leg with muscle involvement without evidence of necrosis; E11.65 Type 2 diabetes mellitus with hyperglycemia; Z89.512 Acquired absence of left leg below knee
CPT/HCPCS: A6213; A9270

== ENCOUNTER 2025-01-13 03:32 | Day surgery (SDC) | payer MEDICARE, OTHER | END 2025-01-13 23:00 | disposition home or self-care (01) | LOC: HBO 03:32 | DX: E11.622 Type 2 diabetes mellitus with other skin ulcer (principal); L97.812 Non-pressure chronic ulcer of other part of right lower leg with fat layer exposed; E11.65 Type 2 diabetes mellitus with hyperglycemia; Z89.512 Acquired absence of left leg below knee | CPT/HCPCS: 82947; G0277 ==

== ENCOUNTER 2025-01-14 03:39 | Day surgery (SDC) | payer MEDICARE, OTHER | END 2025-01-14 23:00 | disposition home or self-care (01) | LOC: HBO 03:39 | DX: E11.622 Type 2 diabetes mellitus with other skin ulcer (principal); L97.813 Non-pressure chronic ulcer of other part of right lower leg with necrosis of muscle; L97.922 Non-pressure chronic ulcer of unspecified part of left lower leg with fat layer exposed; E11.65 Type 2 diabetes mellitus with hyperglycemia; Z89.512 Acquired absence of left leg below knee; Z86.31 Personal history of diabetic foot ulcer | CPT/HCPCS: 82947; G0277 ==

== ENCOUNTER 2025-01-15 04:08 | Day surgery (SDC) | payer MEDICARE, OTHER | END 2025-01-15 23:00 | disposition home or self-care (01) | LOC: HBO 04:08 | DX: E11.622 Type 2 diabetes mellitus with other skin ulcer (principal); L97.812 Non-pressure chronic ulcer of other part of right lower leg with fat layer exposed; E11.65 Type 2 diabetes mellitus with hyperglycemia; E78.00 Pure hypercholesterolemia, unspecified; Z89.512 Acquired absence of left leg below knee; Z86.31 Personal history of diabetic foot ulcer | CPT/HCPCS: 36415; 80061; 82947; 83036; G0277 ==

== ENCOUNTER 2025-01-18 00:49 | Day surgery (SDC) | payer MEDICARE, OTHER | END 2025-01-18 23:00 | disposition home or self-care (01) | LOC: HBO 00:49 | DX: E11.622 Type 2 diabetes mellitus with other skin ulcer (principal); L97.813 Non-pressure chronic ulcer of other part of right lower leg with necrosis of muscle; E11.65 Type 2 diabetes mellitus with hyperglycemia; Z89.512 Acquired absence of left leg below knee | CPT/HCPCS: 82947; G0277 ==

== ENCOUNTER 2025-01-26 04:25 | Day surgery (SDC) | payer MEDICARE, OTHER ==
[2025-01-26] MEDS ORDERED: Lidocaine HCl 4% Cream 5 GM ONE (09:47)
== END 2025-01-26 23:00 | disposition home or self-care (01) ==
LOC: WOUND 04:25
DX: E11.622 Type 2 diabetes mellitus with other skin ulcer (principal); L97.815 Non-pressure chronic ulcer of other part of right lower leg with muscle involvement without evidence of necrosis; Z79.4 Long term (current) use of insulin; Z86.31 Personal history of diabetic foot ulcer; Z87.891 Personal history of nicotine dependence; Z89.512 Acquired absence of left leg below knee
CPT/HCPCS: A6213; A9270

== ENCOUNTER 2025-02-02 00:57 | Day surgery (SDC) | payer MEDICARE, OTHER ==
[2025-02-02] MEDS ORDERED: Lidocaine HCl 4% Cream 5 GM ONE (09:50)
== END 2025-02-02 23:00 | disposition home or self-care (01) ==
LOC: WOUND 00:57
DX: E11.622 Type 2 diabetes mellitus with other skin ulcer (principal); L97.815 Non-pressure chronic ulcer of other part of right lower leg with muscle involvement without evidence of necrosis; E11.65 Type 2 diabetes mellitus with hyperglycemia; Z89.512 Acquired absence of left leg below knee
CPT/HCPCS: A6213; A9270

== ENCOUNTER 2025-02-11 03:35 | Day surgery (SDC) | payer MEDICARE, OTHER ==
[2025-02-11] MEDS ORDERED: Lidocaine HCl 4% Cream 5 GM ONE (09:49)
== END 2025-02-11 23:16 | disposition home or self-care (01) ==
LOC: WOUND 03:35
DX: E11.622 Type 2 diabetes mellitus with other skin ulcer (principal); L97.815 Non-pressure chronic ulcer of other part of right lower leg with muscle involvement without evidence of necrosis; E11.65 Type 2 diabetes mellitus with hyperglycemia; E11.51 Type 2 diabetes mellitus with diabetic peripheral angiopathy without gangrene; I87.2 Venous insufficiency (chronic) (peripheral); Z86.31 Personal history of diabetic foot ulcer; Z89.512 Acquired absence of left leg below knee
CPT/HCPCS: A6213; A9270

== ENCOUNTER 2025-02-18 00:49 | Day surgery (SDC) | payer MEDICARE, OTHER ==
[2025-02-18] MEDS ORDERED: Lidocaine HCl 4% Cream 5 GM ONE ×2 (14:07→14:13)
[2025-02-18] MEDS ORDERED: Miconazole Nitrate 28 GM CREAM..G. TOP ONE (14:42)
== END 2025-02-18 23:00 | disposition home or self-care (01) ==
LOC: WOUND 00:49
DX: E11.622 Type 2 diabetes mellitus with other skin ulcer (principal); L97.813 Non-pressure chronic ulcer of other part of right lower leg with necrosis of muscle; E11.65 Type 2 diabetes mellitus with hyperglycemia; Z89.512 Acquired absence of left leg below knee; I87.2 Venous insufficiency (chronic) (peripheral); Z86.31 Personal history of diabetic foot ulcer; I73.9 Peripheral vascular disease, unspecified
CPT/HCPCS: A6213; A9270

== ENCOUNTER 2025-03-03 02:27 | Day surgery (SDC) | payer MEDICARE, OTHER | END 2025-03-03 23:00 | disposition home or self-care (01) | LOC: WOUND 02:27 | DX: E11.622 Type 2 diabetes mellitus with other skin ulcer (principal); L97.815 Non-pressure chronic ulcer of other part of right lower leg with muscle involvement without evidence of necrosis; E11.65 Type 2 diabetes mellitus with hyperglycemia; E11.51 Type 2 diabetes mellitus with diabetic peripheral angiopathy without gangrene; I87.2 Venous insufficiency (chronic) (peripheral); Z89.512 Acquired absence of left leg below knee; Z86.31 Personal history of diabetic foot ulcer; Z87.891 Personal history of nicotine dependence | CPT/HCPCS: A6213 ==

== ENCOUNTER 2025-03-09 02:49 | Day surgery (SDC) | payer MEDICARE, OTHER | END 2025-03-09 23:00 | disposition home or self-care (01) | LOC: WOUND 02:49 | DX: E11.622 Type 2 diabetes mellitus with other skin ulcer (principal); E11.51 Type 2 diabetes mellitus with diabetic peripheral angiopathy without gangrene; I87.2 Venous insufficiency (chronic) (peripheral); E11.65 Type 2 diabetes mellitus with hyperglycemia; Z87.891 Personal history of nicotine dependence; Z79.4 Long term (current) use of insulin; Z89.512 Acquired absence of left leg below knee; L97.813 Non-pressure chronic ulcer of other part of right lower leg with necrosis of muscle; Z86.31 Personal history of diabetic foot ulcer; E11.42 Type 2 diabetes mellitus with diabetic polyneuropathy; M79.89 Other specified soft tissue disorders | CPT/HCPCS: 73610; A6213 ==

== ENCOUNTER 2025-03-16 02:21 | Day surgery (SDC) | payer MEDICARE, OTHER ==
[2025-03-16] MEDS ORDERED: Lidocaine HCl 4% Cream 5 GM ONE (13:36)
== END 2025-03-16 22:00 | disposition home or self-care (01) ==
LOC: WOUND 02:21
DX: E11.622 Type 2 diabetes mellitus with other skin ulcer (principal); L97.815 Non-pressure chronic ulcer of other part of right lower leg with muscle involvement without evidence of necrosis; E11.51 Type 2 diabetes mellitus with diabetic peripheral angiopathy without gangrene; I87.2 Venous insufficiency (chronic) (peripheral); E11.65 Type 2 diabetes mellitus with hyperglycemia; Z79.4 Long term (current) use of insulin; Z87.891 Personal history of nicotine dependence; Z86.31 Personal history of diabetic foot ulcer; Z89.512 Acquired absence of left leg below knee
CPT/HCPCS: A6213; A9270

== ENCOUNTER 2025-03-30 02:00 | Day surgery (SDC) | payer MEDICARE, OTHER ==
[2025-03-30] MEDS ORDERED: Lidocaine HCl 4% Cream 5 GM ONE (15:00)
== END 2025-03-30 23:00 | disposition home or self-care (01) ==
LOC: WOUND 02:00
DX: E11.622 Type 2 diabetes mellitus with other skin ulcer (principal); L97.813 Non-pressure chronic ulcer of other part of right lower leg with necrosis of muscle; E11.51 Type 2 diabetes mellitus with diabetic peripheral angiopathy without gangrene; I87.2 Venous insufficiency (chronic) (peripheral); E11.65 Type 2 diabetes mellitus with hyperglycemia; Z86.31 Personal history of diabetic foot ulcer; Z87.891 Personal history of nicotine dependence; Z89.512 Acquired absence of left leg below knee
CPT/HCPCS: A6213; A9270

== ENCOUNTER 2025-04-05 04:22 | Day surgery (SDC) | payer MEDICARE, OTHER ==
[2025-04-05] MEDS ORDERED: Lidocaine HCl 4% Cream 5 GM ONE (13:47)
== END 2025-04-05 23:26 | disposition home or self-care (01) ==
LOC: WOUND 04:22
DX: E11.622 Type 2 diabetes mellitus with other skin ulcer (principal); E11.621 Type 2 diabetes mellitus with foot ulcer; L97.813 Non-pressure chronic ulcer of other part of right lower leg with necrosis of muscle; L97.512 Non-pressure chronic ulcer of other part of right foot with fat layer exposed; Z89.512 Acquired absence of left leg below knee; I87.2 Venous insufficiency (chronic) (peripheral); E11.51 Type 2 diabetes mellitus with diabetic peripheral angiopathy without gangrene; I10 Essential (primary) hypertension; E11.40 Type 2 diabetes mellitus with diabetic neuropathy, unspecified
CPT/HCPCS: A6213; A9270

== ENCOUNTER 2025-04-12 01:06 | Day surgery (SDC) | payer MEDICARE, OTHER ==
[2025-04-12] MEDS ORDERED: Lidocaine HCl 4% Cream 5 GM ONE (12:36)
== END 2025-04-12 23:00 | disposition home or self-care (01) ==
LOC: WOUND 01:06
DX: E11.622 Type 2 diabetes mellitus with other skin ulcer (principal); L97.813 Non-pressure chronic ulcer of other part of right lower leg with necrosis of muscle; E11.51 Type 2 diabetes mellitus with diabetic peripheral angiopathy without gangrene; Z89.512 Acquired absence of left leg below knee; I10 Essential (primary) hypertension; E11.40 Type 2 diabetes mellitus with diabetic neuropathy, unspecified
CPT/HCPCS: A6213; A9270

== ENCOUNTER 2025-04-20 01:01 | Day surgery (SDC) | payer MEDICARE, OTHER ==
[2025-04-20] MEDS ORDERED: Lidocaine HCl 4% Cream 5 GM ONE (15:24)
== END 2025-04-20 23:00 | disposition home or self-care (01) ==
LOC: WOUND 01:01
DX: E11.622 Type 2 diabetes mellitus with other skin ulcer (principal); L97.813 Non-pressure chronic ulcer of other part of right lower leg with necrosis of muscle; E11.51 Type 2 diabetes mellitus with diabetic peripheral angiopathy without gangrene; I10 Essential (primary) hypertension; Z89.512 Acquired absence of left leg below knee
CPT/HCPCS: A6196; A6213; A9270; Q4151

== ENCOUNTER → 2025-04-20 | Outpatient (CLI) | payer MEDICARE, OTHER ==
[2025-04-20 21:28] LABS: Ferritin, Serum 398.0 ng/mL (26-388); Total Iron Binding Capacity 232.0 ug/dL (250-450)
== END ==
LOC: LAB 14:53 → LAB SHORT 14:53
PROVIDERS: Internal Medicine Hematology & Oncology
DX: E61.1 Iron deficiency (principal)
CPT/HCPCS: 82728; 83540; 83550

== ENCOUNTER 2025-04-27 00:35 | Day surgery (SDC) | payer MEDICARE, OTHER ==
[2025-04-27] MEDS ORDERED: Lidocaine HCl 4% Cream 5 GM ONE (15:28)
== END 2025-04-27 22:54 | disposition home or self-care (01) ==
LOC: WOUND 00:35
DX: E11.622 Type 2 diabetes mellitus with other skin ulcer (principal); L97.815 Non-pressure chronic ulcer of other part of right lower leg with muscle involvement without evidence of necrosis; E11.51 Type 2 diabetes mellitus with diabetic peripheral angiopathy without gangrene; I87.2 Venous insufficiency (chronic) (peripheral); E11.65 Type 2 diabetes mellitus with hyperglycemia; Z86.31 Personal history of diabetic foot ulcer; Z87.891 Personal history of nicotine dependence; Z79.4 Long term (current) use of insulin; Z89.512 Acquired absence of left leg below knee
CPT/HCPCS: A6196; A6213; A9270

== ENCOUNTER → 2025-05-07 | Outpatient (CLI) | payer MEDICARE, OTHER ==
[2025-05-07 16:04] LABS: Protein, Urine Quantitative 59.3 mg/dL (0.0-11.9)
[2025-05-07 16:10] LABS: Microalbumin, Urine Quant. 491.0 mg/L (0.000-20.000)
== END ==
LOC: LAB 12:00 → LAB SHORT 12:00
PROVIDERS: Family Medicine
DX: N18.2 Chronic kidney disease, stage 2 (mild) (principal); D63.1 Anemia in chronic kidney disease; N25.81 Secondary hyperparathyroidism of renal origin; E55.9 Vitamin D deficiency, unspecified; E78.00 Pure hypercholesterolemia, unspecified; R76.9 Abnormal immunological finding in serum, unspecified; R94.5 Abnormal results of liver function studies; R94.6 Abnormal results of thyroid function studies
CPT/HCPCS: 82043; 82570; 84156

== ENCOUNTER 2025-05-19 00:30 | Day surgery (SDC) | payer MEDICARE, OTHER ==
[2025-05-19] MEDS ORDERED: Lidocaine HCl 4% Cream 5 GM ONE (15:01)
== END 2025-05-19 23:36 | disposition home or self-care (01) ==
LOC: WOUND 00:30
DX: E11.622 Type 2 diabetes mellitus with other skin ulcer (principal); L97.813 Non-pressure chronic ulcer of other part of right lower leg with necrosis of muscle; I87.2 Venous insufficiency (chronic) (peripheral); E11.65 Type 2 diabetes mellitus with hyperglycemia; E11.51 Type 2 diabetes mellitus with diabetic peripheral angiopathy without gangrene; E11.10 Type 2 diabetes mellitus with ketoacidosis without coma; Z79.4 Long term (current) use of insulin; Z79.84 Long term (current) use of oral hypoglycemic drugs; Z79.85 Long-term (current) use of injectable non-insulin antidiabetic drugs; Z79.899 Other long term (current) drug therapy; Z86.31 Personal history of diabetic foot ulcer; Z88.6 Allergy status to analgesic agent; Z89.512 Acquired absence of left leg below knee; Z91.040 Latex allergy status; L97.329 Non-pressure chronic ulcer of left ankle with unspecified severity
CPT/HCPCS: 73610; A9270

== ENCOUNTER 2025-05-26 00:27 | Day surgery (SDC) | payer MEDICARE, OTHER ==
[2025-05-26] MEDS ORDERED: Lidocaine HCl 4% Cream 5 GM ONE (14:40)
== END 2025-05-26 23:00 | disposition home or self-care (01) ==
LOC: WOUND 00:27
DX: E11.622 Type 2 diabetes mellitus with other skin ulcer (principal); L97.813 Non-pressure chronic ulcer of other part of right lower leg with necrosis of muscle; I10 Essential (primary) hypertension; E11.51 Type 2 diabetes mellitus with diabetic peripheral angiopathy without gangrene; Z89.512 Acquired absence of left leg below knee
CPT/HCPCS: A9270